=== PATIENT | female | born 1975 | race Caucasian/White ===

== ENCOUNTER 2017-10-20 19:23 | Emergency (ER) | payer BC ==
--- NOTE | 2017-10-20 20:02 | EDM.PDOC ---
ED HPI GENERAL MEDICAL PROBLEM - General Chief Complaint: Cardiovascular Problem Stated Complaint: BLOOD PRESSURE Time Seen by Provider: 10/20/17 19:37 Source of Information: Reports: Patient History Limitations: Reports: No Limitations - History of Present Illness INITIAL COMMENTS - FREE TEXT/NARRATIVE: Presents reporting she is out of her blood pressure pills. She states that the clinic was not able to get her in until November 12 and the other clinic that she tried in [place] would not take her insurance because it was out of network. Her blood pressure has been elevated at home and she has had some headaches and ringing in the ears because of that. He has been on carvedilol 12.5 mg and hydrochlorothiazide 12.5 mg daily. No chest pain, shortness of breath or swelling in the ankles. HEAD Pain Score (Numeric/FACES): 7 - Related Data Allergies Allergy/AdvReac Type Severity Reaction Status Date / Time No Known Allergies Allergy Verified 10/20/17 19:29 Home Meds: Home Meds Carvedilol 1 tab PO BEDTIME 10/20/17 [History] Carvedilol 12.5 mg PO DAILY #30 tablet 10/20/17 [Rx] Hydrochlorothiazide 1 tab PO DAILY 10/20/17 [History] Hydrochlorothiazide 12.5 mg PO DAILY #30 cap 10/20/17 [Rx] ED ROS GENERAL - Review of Systems Review Of Systems: ROS reveals no pertinent complaints other than HPI. ED EXAM, GENERAL - Physical Exam Exam: See Below Exam Limited By: No Limitations General Appearance: Alert, No Apparent Distress Ears: Normal External Exam Nose: Normal Inspection Throat/Mouth: Normal Inspection Head: Atraumatic, Normocephalic Neck: Normal Inspection Respiratory/Chest: No Respiratory Distress, Lungs Clear, Normal Breath Sounds Cardiovascular: Normal Peripheral Pulses, Regular Rate, Rhythm, No Edema, No Murmur Peripheral Pulses: 3+: Radial (L), Radial (R), Posterior Tibial (L), Posterior Tibial (R) GI/Abdominal: Soft Neurological: Alert, Oriented, CN II-XII Intact, Normal Cognition, Normal Gait, No Motor/Sensory Deficits Psychiatric: Normal Affect, Normal Mood Skin Exam: Warm, Dry, Intact, Normal Color, No Rash Lymphatic: No Adenopathy Course - Vital Signs Last Recorded V/S: Last Vital Signs Temp 36.3 C 06/05/18 19:23 Pulse 79 10/20/17 19:23 Resp 18 10/20/17 19:23 BP 136/83 10/20/17 19:53 Pulse Ox 95 10/20/17 19:23 Departure - Departure Time of Disposition: 20:02 Disposition: Home, Self-Care 01 Condition: Good Clinical Impression: Hypertension Qualifiers: Hypertension type: essential hypertension Qualified Code(s): I10 - Essential ( primary) hypertension Referrals: PCP,None [Primary Care Provider] - Additional Instructions: 1. Follow up with primary care at [facility] as previously scheduled. 2. Take your prescribed medications.
== END 2017-10-20 20:00 | disposition home or self-care (01) ==
LOC: MW.ED 19:23
DX: I10 Essential (primary) hypertension (principal); Z79.899 Other long term (current) drug therapy
CPT/HCPCS: 99282

== ENCOUNTER 2018-05-29 20:45 | Emergency (ER) | payer BC ==
--- NOTE | 2018-05-29 21:21 | EDM.PDOC ---
ED HPI GENERAL MEDICAL PROBLEM - General Chief Complaint: General Stated Complaint: PT TAMPON INSERTED INCORRECTLY Time Seen by Provider: 05/29/18 21:19 Source of Information: Reports: Patient History Limitations: Reports: No Limitations - History of Present Illness INITIAL COMMENTS - FREE TEXT/NARRATIVE: HISTORY AND PHYSICAL: History of present illness: Patient is a 42-year-old female who presents to the emergency room today with complaints of retained tampon. She states this afternoon she had inserted a tampon and proceeded to take a shower. She was intimate shortly after and had forgotten that she had a tampon in place. She went to the bathroom to remove the tampon and was unable to find the string. States the tampon has only been in the vagina for approx 4-5 hours. She denies any fever, chills, chest pain, shortness of breath or cough. Denies any abdominal pain, nausea, vomiting, diarrhea, constipation or dysuria. She does routinely see her primary care provider and states that she did have a routine pelvic/Pap smear done within the last 6-8 months which was normal. Review of systems: As per history of present illness and below otherwise all systems reviewed and negative. Past medical history: As per history of present illness and as reviewed below otherwise noncontributory. Surgical history: As per history of present illness and as reviewed below otherwise noncontributory. Social history: See social history for further information Family history: As per history of present illness and as reviewed below otherwise noncontributory. Physical exam: General: Well-developed and well-nourished 42-year-old female. Alert and oriented. Nontoxic appearing and in no acute distress. HEENT: Atraumatic, normocephalic, pupils equal and reactive bilaterally, negative for conjunctival pallor or scleral icterus, mucous membranes moist, throat clear, neck supple, nontender, trachea midline. No drooling or trismus noted. No meningeal signs Lungs: Clear to auscultation, breath sounds equal bilaterally, chest nontender. Heart: S1S2, regular rate and rhythm without overt murmur Abdomen: Soft, nondistended, nontender. Negative for masses or hepatosplenomegaly. Negative for costovertebral tenderness. Pelvis: Stable nontender. Genitourinary: This was done with consent culinary art teacher at the bedside. Normal- appearing external genitalia. There is a side-lying tampon in the vagina. Was able to remove easily without difficulty. Remainder of the pelvic exam is within normal limits. She tolerated well. Rectal: Deferred. Skin: Intact, warm, dry. No lesions or rashes noted. Extremities: Atraumatic, negative for cords or calf pain. Neurovascular unremarkable. Neuro: Awake, alert, oriented. Cranial nerves II through XII unremarkable. Cerebellum unremarkable. Motor and sensory unremarkable throughout. Exam nonfocal. Notes: Besides the pelvic exam and removal of the retained tampon, patient offers no other concerns or complaints. She declines the need for any further evaluation or diagnostics. Supportive care measures were reviewed and discussed. She voices understanding and is agreeable to plan of care. Denies any further questions or concerns at this time. Diagnostics: None Therapeutics: None Prescription: None Impression: Foreign body removal of the vagina Plan: 1. Please follow-up with your primary care provider and/or WIND PROJECT MANAGER as needed. 2. Return to the ED as needed and as discussed. Definitive disposition and diagnosis as appropriate pending reevaluation and review of above. pelvis Pain Score (Numeric/FACES): 5 - Related Data Allergies Allergy/AdvReac Type Severity Reaction Status Date / Time No Known Allergies Allergy Verified 05/29/18 20:52 Home Meds: Home Meds Carvedilol 12.5 mg PO DAILY #30 tablet 10/20/17 [Rx] hydroCHLOROthiazide [Hydrochlorothiazide] 12.5 mg PO DAILY #30 cap 10/20/17 [Rx] Montelukast [Singulair] 1 tab PO DAILY 05/29/18 [History] Pantoprazole [ProTONIX] 1 tab PO DAILY 05/29/18 [History] metFORMIN [Glucophage XR] 1 tab PO BID 05/29/18 [History] Past Medical History Cardiovascular History: Reports: Hypertension Respiratory History: Reports: Asthma WIND PROJECT MANAGER History: Reports: Endocrine/Metabolic History: Reports: Obesity/BMI 30+ - Past Surgical History GI Surgical History: Reports: Cholecystectomy Female Surgical History: Reports: Section Musculoskeletal Surgical History: Reports: Arthroscopic Knee Social & Family History - Family History Family Medical History: Noncontributory - Tobacco Use Smoking Status *Q: Never Smoker - Recreational Drug Use Recreational Drug Use: No ED ROS GENERAL - Review of Systems Review Of Systems: ROS reveals no pertinent complaints other than HPI. ED EXAM, GENERAL - Physical Exam Exam: See Below (See dictation) Course - Vital Signs Last Recorded V/S: Last Vital Signs Temp 98.1 F 05/29/18 21:00 Pulse 92 05/29/18 21:00 Resp 18 05/29/18 21:00 BP 143/94 H 05/29/18 21:00 Pulse Ox 98 05/29/18 21:00 Departure - Departure Time of Disposition: 21:20 Disposition: Home, Self-Care Clinical Impression: Retained tampon Qualifiers: Encounter type: initial encounter Qualified Code(s): T19.2XXA - Foreign body in vulva and vagina, initial encounter - Discharge Information Instructions: Vaginal Foreign Body, [id number] Referrals: PCP,None [Primary Care Provider] - Forms: ED Department Discharge Additional Instructions: The following information is given to patients seen in the emergency department who are being discharged to home. This information is to outline your options for follow-up care. We provide all patients seen in our emergency department with a follow-up referral. The need for follow-up, as well as the timing and circumstances, are variable depending upon the specifics of your emergency department visit. If you don't have a primary care physician on staff, we will provide you with a referral. We always advise you to contact your personal physician following an emergency department visit to inform them of the circumstance of the visit and for follow-up with them and/or the need for any referrals to a consulting specialist. The emergency department will also refer you to a specialist when appropriate. This referral assures that you have the opportunity for follow-up care with a specialist. All of these measure are taken in an effort to provide you with optimal care, which includes your follow-up. Under all circumstances we always encourage you to contact your private physician who remains a resource for coordinating your care. When calling for follow-up care, please make the office aware that this follow-up is from your recent emergency room visit. If for any reason you are refused follow-up, please contact the [facility] Emergency Department at and asked to speak to the emergency department charge nurse. [facility] [address] [place] [id number] [facility] [address] [place] [address] 1. Please follow-up with your primary care provider and/or WIND PROJECT MANAGER as needed. 2. Return to the ED as needed and as discussed.
== END 2018-05-29 21:25 | disposition home or self-care (01) ==
LOC: MW.ED 20:45
DX: T19.2XXA Foreign body in vulva and vagina, initial encounter (principal); I10 Essential (primary) hypertension; Z79.899 Other long term (current) drug therapy
CPT/HCPCS: 99283

== ENCOUNTER 2018-07-30 09:31 | Day surgery (SDC) | payer BC, OTHER ==
[~2018-07-30 09:31] MED LIST: Bupivacaine 0.25%/EPINEPHrine 1:200,000 10 ML SDV INJECT ONE; Lactated Ringers 1,000 ML IV SCH; ceFAZolin 2 GM in Premix Bag 1 BAG IV ONE
--- NOTE | 2018-07-30 10:07 | PCM.PREANE ---
Preanesthetic Assessment - Anesthesia/Transfusion/Family Hx Anesthesia History: Prior Anesthesia Without Reaction Family History of Anesthesia Reaction: No Transfusion History: No Prior Transfusion(s) - Review of Systems General: No Symptoms Pulmonary: No Symptoms Cardiovascular: No Symptoms Gastrointestinal: No Symptoms Neurological: No Symptoms Other: Reports: None - Physical Assessment NPO Status Date: 07/29/18 Height: 5 ft 2 in Weight: 108.862 kg ASA Class: 2 Mental Status: Alert & Oriented x3 Airway Class: Mallampati = 2 Dentition: Reports: Broken Tooth/Teeth ROM/Head Extension: Full Lungs: Clear to Auscultation, Normal Respiratory Effort Cardiovascular: Regular Rate, Regular Rhythm - Allergies Allergies/Adverse Reactions: Allergies Allergy/AdvReac Type Severity Reaction Status Date / Time No Known Allergies Allergy Verified 07/26/18 07:52 - Blood Blood Available: No - Anesthesia Plan Pre-Op Medication Ordered: None - Acknowledgements Anesthesia Type Planned: General Anesthesia Pt an Appropriate Candidate for the Planned Anesthesia: Yes Alternatives and Risks of Anesthesia Discussed w Pt/Guardian: Yes Pt/Guardian Understands and Agrees with Anesthesia Plan: Yes Additional Comments: PMH: MO, Asthma, HTN, metabolic syndrome-rx:metformin PLAN: GET PreAnesthesia Questionnaire HEENT History: Reports: Allergic Rhinitis, Hard of Hearing, Impaired Vision, Other (See Below) Other HEENT History: wears contacts, left hearing aid Cardiovascular History: Reports: Hypertension Respiratory History: Reports: Asthma Other Respiratory History: states has not used her inhaler for years Gastrointestinal History: Reports: GERD Genitourinary History: Reports: None RESOURCING CONSULTANT History: Reports: Musculoskeletal History: Reports: Neck Pain, Chronic Neurological History: Reports: None Psychiatric History: Reports: Anxiety, Depression Endocrine/Metabolic History: Reports: Obesity/BMI 30+ Other Endocrine/Metabolic History: metabolic syndrome Hematologic History: Reports: None Immunologic History: Reports: None Oncologic (Cancer) History: Reports: None Dermatologic History: Reports: None - Past Surgical History Head Surgeries/Procedures: Reports: None GI Surgical History: Reports: Cholecystectomy Female Surgical History: Reports: Section Neurological Surgical History: Reports: None Musculoskeletal Surgical History: Reports: Arthroscopic Knee, Carpal Tunnel Oncologic Surgical History: Reports: None Dermatological Surgical History: Reports: None - SUBSTANCE USE Smoking Status *Q: Never Smoker Recreational Drug Use History: No - HOME MEDS Home Medications: Home Meds hydroCHLOROthiazide [Hydrochlorothiazide] 12.5 mg PO DAILY #30 cap 10/20/17 [Rx] Montelukast [Singulair] 1 tab PO DAILY 05/29/18 [History] Pantoprazole [ProTONIX] 1 tab PO DAILY 05/29/18 [History] metFORMIN [Glucophage XR] 1 tab PO BID 05/29/18 [History] Cetirizine [ZyrTEC] 10 mg PO BEDTIME 07/26/18 [History] Levocetirizine Dihydrochloride [Xyzal] 5 mg PO DAILY 07/26/18 [History] Sertraline HCl 100 mg PO DAILY 07/26/18 [History] Carvedilol 12.5 mg PO BEDTIME 07/27/18 [History] - CURRENT (IN HOUSE) MEDS Current Meds: Current Medications Hydrocodone Bitart/Acetaminophen ([place] 325-5 Mg) 1 tab PO Q4H PRN PRN Reason: Pain Lactated Ringer's (Ringers, Lactated) 1,000 mls @ 125 mls/hr IV ASDIRECTED SAV Discontinued Medications Bupivacaine HCl/Epinephrine Bitart (Marcaine 0.25%/Epinephrine 1:200,000) 30 ml INJECT ONETIME ONE Stop: 07/30/18 08:01 Cefazolin Sodium/Dextrose 2 gm (/ Premix) 50 mls @ 100 mls/hr IV ONETIME ONE Stop: 07/30/18 08:29
[2018-07-30] MEDS ORDERED: diphenhydrAMINE 50 MG/ML SDV ONE (10:17)
[2018-07-30] MEDS ORDERED: Lidocaine 2% 5 ML SDV ONE (10:17)
[2018-07-30] MEDS ORDERED: Bupivacaine 25%/EPINEPHrine/PF 30 ML ONE (10:40)
[2018-07-30] MEDS ORDERED: fentaNYL 250 MCG/5 ML SDV ONE (10:48)
[2018-07-30] MEDS ORDERED: Propofol 200 MG/20 ML SDV ONE (10:48)
[2018-07-30] MEDS ORDERED: Rocuronium 10 MG/ML 10 ML Syringe ONE (10:48)
[2018-07-30] MEDS ORDERED: Midazolam 1 MG/ML 2 ML SDV ONE (10:48)
[2018-07-30] MEDS ORDERED: Ondansetron 4 MG/2 ML SDV ONE (10:48)
[2018-07-30] MEDS ORDERED: ceFAZolin/Dextrose,Iso-Osmotic 2 GM/50 ML Duplex Bag IV ONE (10:50)
[2018-07-30] MEDS ORDERED: HYDROmorphone 2 MG/ML Syringe ONE (11:44)
[2018-07-30] MEDS ORDERED: Scopolamine 1.5 MG Transdermal Patch ONE (11:44)
[2018-07-30] MEDS ORDERED: EPINEPHrine 1 MG/ML 30 ML MDV IVPUSH PRN (14:21)
[2018-07-30] MEDS ORDERED: 50% Dextrose in Water 50 ML Syringe IVPUSH PRN (14:21)
[2018-07-30] MEDS ORDERED: Naloxone 0.4 MG/ML Syringe IVPUSH PRN (14:21)
[2018-07-30] MEDS ORDERED: fentaNYL 100 MCG/2 ML SDV IVPUSH PRN (14:21)
[2018-07-30] MEDS ORDERED: Albuterol 0.083% 2.5 MG/3 ML Neb Soln NEB PRN (14:21)
[2018-07-30] MEDS ORDERED: Atropine 0.4 MG/ML SDV IVPUSH PRN (14:21)
[2018-07-30] MEDS ORDERED: Atropine 0.4 MG/ML 20 ML MDV IVPUSH PRN (14:21)
--- NOTE | 2018-07-30 15:45 | PCM.POSTAN ---
POST ANESTHESIA ASSESSMENT - MENTAL STATUS Mental Status: Alert, Oriented - VITAL SIGNS Pulse Rate: 80 SaO2: 92 (2 LPM NC) Resp Rate: 14 - RESPIRATORY Respiratory Status: Respiratory Rate WNL, Airway Patent, O2 Saturation Stable - CARDIOVASCULAR CV Status: Pulse Rate WNL, Blood Pressure Stable - GASTROINTESTINAL GI Status: No Symptoms - POST OP HYDRATION Hydration Status: Adequate & Stable
--- NOTE | 2018-07-30 16:10 | PCM.OPNOTE ---
- General Post-Op/Procedure Note Date of Surgery/Procedure: 07/30/18 Operative Procedure(s): bilateral reduction mammoplasty Pre Op Diagnosis: bilateral macromastia Post-Op Diagnosis: Same Anesthesia Technique: Local, MAC Primary Surgeon: Rosa Salazar Retail Performance Coach: Darcy Teixeira Role of Retail Performance Coach: retraction prepping draping and closure assistance Complications: None Condition: Good Free Text/Narrative:: Intake & Output 07/30/18 07/30/18 07/30/18 07:59 15:59 23:59 Intake Total 4000 Output Total 410 Balance 3590
[2018-07-30] MEDS ORDERED: Ondansetron 4 MG/2 ML SDV IVPUSH PRN (16:19)
[2018-07-30] MEDS ORDERED: Ondansetron 4 MG Tab.DIS PO PRN (16:19)
[2018-07-30] MEDS ORDERED: Promethazine 25 MG Tab PO PRN (19:43)
[2018-07-30] MEDS: Acetaminophen/HYDROcodone 325-5 MG Tab PO PRN (20:04)
[2018-07-30] MEDS ORDERED: Carvedilol 12.5 MG Tab PO SCH (21:00)
[2018-07-30] MEDS ORDERED: Cetirizine 10 MG Tab PO SCH (21:00)
[2018-07-30] MEDS: Montelukast 10 MG Tab PO SCH (21:16)
[2018-07-31] MEDS: Acetaminophen/HYDROcodone 325-5 MG Tab PO PRN ×2 (04:50→09:47)
[2018-07-31] MEDS ORDERED: Omeprazole 20 MG Cap.CR PO SCH (07:00)
--- NOTE | 2018-07-31 08:36 | PCM48HPAN ---
Post Anesthesia Note - EVALUATION WITHIN 48HRS OF ANESTHETIC Vital Signs in Normal Range: Yes Patient Participated in Evaluation: Yes Respiratory Function Stable: Yes Airway Patent: Yes Cardiovascular Function Stable: Yes Hydration Status Stable: Yes Pain Control Satisfactory: Yes Nausea and Vomiting Control Satisfactory: Yes Mental Status Recovered: Yes Pulse Rate: 88 Resp Rate: 18 Blood Pressure: 134/73 - COMMENTS/OBSERVATIONS Free Text/Narrative:: Pts nausea is improving and able to take PO fluids and solids. Pts pain remain tolerable. Pt ready for discharge.
[2018-07-31] MEDS ORDERED: Non-Formulary Medication 1 Each (Levocetirizine Dihydrochloride [Xyzal] 5 MG) PO SCH (09:00)
[2018-07-31] MEDS ORDERED: Hydrochlorothiazide 12.5 MG Cap PO SCH (09:00)
[2018-07-31] MEDS ORDERED: metFORMIN 500 MG Tab.ER PO SCH (09:00)
[2018-07-31] MEDS ORDERED: Sertraline 100 MG Tab PO SCH (09:00)
[2018-07-31] MEDS: Montelukast 10 MG Tab PO SCH (10:34)
--- NOTE | 2018-07-31 13:11 | OR ---
SURGEON: ADRIANNE MELCHOR MD DATE OF PROCEDURE: 07/30/2018 PREOPERATIVE DIAGNOSIS: Bilateral macromastia. POSTOPERATIVE DIAGNOSIS: Bilateral macromastia. PROCEDURE: Bilateral reduction mammoplasty. REVENUE TAX SPECIALIST: AUDREY Warner REASON FOR AND ROLE OF REVENUE TAX SPECIALIST: Retraction, prepping, draping, positioning and closure assistance. INDICATIONS: Ms. Huff is a 42-year-old female with macromastia and significant symptoms associated. Risks and benefits were discussed with her including, but not limited to, bleeding, infection, damage to underlying or overlying structures, possible need for future interventions, possible scarring. This will be done for medical necessity. PROCEDURE IN DETAIL: After informed consent was obtained and placed on the chart, the patient was brought to the operating theater and laid in supine position. After adequate general anesthesia was obtained, the area was prepped and draped, and time-out was completed to confirm side and site. Attention was then paid to time-out to confirm side and site and then the preoperative markings done in the preanesthesia area were confirmed and just slightly for new inferior pedicle. Once the inferior pedicle was designed, it was de-epithelialized using a breast tourniquet and a 15 blade taking care to spare the nipple. Once adequately de-epithelialized, attention was then paid to the superior skin flaps. The superior skin flaps were dissected 1.5 cm thick tapering to the chest wall medially, 1.5 cm thick tapering all the way to the chest wall laterally. They were connected in the middle and the intervening breast tissue between this and the inferior pedicle was removed. The symmetry procedure was completed on the opposite side and the skin was redraped bilaterally and stapled in position. The patient was then sat up into the supine position and the left breast was appreciated to be somewhat larger. Additional adjustments were made here and additional breast tissue was taken. The patient was then sat up again and symmetry was appreciated. Once back in supine position, the new position of the nipple-areolar complex had been marked while sitting up, and these were dissected and the nipple-areolar complex was brought through and stapled in place. Once this was completed, attention was then paid to closure. A 3-0 Monocryl Stratafix in a deep dermal fashion was used to close the dermis and a running subcuticular 4-0 Stratafix for the skin and was used to complete the closure. Once this was done, the wounds were dressed with Steri-Strips. The patient tolerated this well with some inverting of the left nipple, which was adjusted well to pop out. This is most likely positioning of the patient. Once adequately dressed with fluffs, Kerlix, and a compression bra, the patient was transferred to the PACU in stable condition. FOLLOW UP: She will be maintained with this overnight as she is quite sleepy and has had some low 90s oxygen saturations in PACU. LEON / JEAN /[id number] BENITO
== END 2018-07-31 11:20 | disposition home or self-care (01) ==
LOC: MW.SDS 09:31 → MW.MS 16:44 → MW.SDS 07-31 11:20
PROVIDERS: ATTEND Plastic Surgery
DX: N62 Hypertrophy of breast (principal); N60.12 Diffuse cystic mastopathy of left breast; N60.11 Diffuse cystic mastopathy of right breast; J45.909 Unspecified asthma, uncomplicated; I10 Essential (primary) hypertension; E66.9 Obesity, unspecified; Z68.41 Body mass index [BMI] 40.0-44.9, adult; H91.90 Unspecified hearing loss, unspecified ear; E78.5 Hyperlipidemia, unspecified; K21.9 Gastro-esophageal reflux disease without esophagitis; F41.9 Anxiety disorder, unspecified; F32.9 Major depressive disorder, single episode, unspecified; M19.90 Unspecified osteoarthritis, unspecified site; Z79.84 Long term (current) use of oral hypoglycemic drugs; Z79.899 Other long term (current) drug therapy
CPT/HCPCS: 19318; 36415; 84703; A9270; J0131; J0461; J0690; J1170; J1200; J2001; J2250; J2405; J2704; J3010; J7120

== ENCOUNTER 2018-08-21 13:32 | Observation (INO) | payer BC, OTHER ==
[2018-08-21] MEDS ORDERED: Sodium Chloride 0.9% 10 ML Syringe FLUSH PRN (13:59)
[2018-08-21] MEDS ORDERED: Sodium Chloride 0.9% 2.5 ML Syringe FLUSH PRN (13:59)
[2018-08-21] MEDS ORDERED: Sodium Chloride 0.9% 1,000 ML IV ONE (13:59)
[2018-08-21 15:19] LABS: CHLORIDE,CL 102 mmol/L (98-107); SODIUM,NA 139 mmol/L (136-145)
[2018-08-21] MEDS ORDERED: Ondansetron 4 MG Tab.DIS PO PRN (16:10)
[2018-08-21] MEDS ORDERED: Acetaminophen 325 MG Tab PO PRN (16:10)
--- NOTE | 2018-08-21 16:23 | PCM.HP ---
H&P History of Present Illness - General Date of Service: 08/21/18 Admit Problem/Dx: Admission Diagnosis/Problem Admission Diagnosis/Problem Cellulitis Source of Information: Patient History Limitations: Reports: No Limitations - History of Present Illness Initial Comments - Free Text/Narative: Patient noted increased redness of the right breast yesterday with some drainage. She states she woke up wet and this morning feeling febrile and chilled. She has recently had someone in her family with influenza type illness , but denies any of those symptoms. She feels very tired. Focal redness of the right breast at the T junction more than the left breast. No streaking or signs of deeper involvement. She tried to milk fluid for us today and there is nothing draining at this time. We will try to obtain a culture of the area but it may be limited given the lack of any purulence or drainage. We discussed that there are two options - one being IV antibiotics here and then discharge on oral or keeping for observation overnight. Given the rapidity of the onset and curious timing of 3 weeks out from surgery, this is quite atypical. I would recommend coming in overnight for IV antibiotics just to be safe. She understands and agrees. Onset of Symptoms: Reports: Sudden Duration of Symptoms: Reports: Day(s): (1) Location: Reports: Chest (right breast) Quality: Reports: Pressure, Throbbing Severity: Moderate Improves with: Reports: None Worsens with: Reports: None Context: Reports: Sick Contact. Denies: Trauma Associated Symptoms: Reports: Fever/Chills, Headaches, Malaise. Denies: Nausea/ Vomiting, Rash, Shortness of Breath Right Breast Pain Score (Numeric/FACES): 3 - Related Data Allergies/Adverse Reactions: Allergies Allergy/AdvReac Type Severity Reaction Status Date / Time No Known Allergies Allergy Verified 08/21/18 13:39 Home Medications: Home Meds hydroCHLOROthiazide [Hydrochlorothiazide] 12.5 mg PO DAILY #30 cap 10/20/17 [Rx] Montelukast [Singulair] 1 tab PO DAILY 05/29/18 [History] Pantoprazole [ProTONIX] 1 tab PO DAILY 05/29/18 [History] metFORMIN [Glucophage XR] 1 tab PO BID 05/29/18 [History] Cetirizine [ZyrTEC] 10 mg PO BEDTIME 07/26/18 [History] Levocetirizine Dihydrochloride [Xyzal] 5 mg PO DAILY 07/26/18 [History] Sertraline HCl 100 mg PO DAILY 07/26/18 [History] Carvedilol 12.5 mg PO BEDTIME 07/27/18 [History] Acetaminophen/HYDROcodone [Clifton 325-5 MG] 1 tab PO Q4H PRN #30 tablet 07/30/18 [Rx] Past Medical History HEENT History: Reports: Allergic Rhinitis, Hard of Hearing, Impaired Vision, Other (See Below) Other HEENT History: wears contacts, left hearing aid Cardiovascular History: Reports: Hypertension Respiratory History: Reports: Asthma Other Respiratory History: states has not used her inhaler for years Gastrointestinal History: Reports: GERD Genitourinary History: Reports: None 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: Musculoskeletal History: Reports: Neck Pain, Chronic Neurological History: Reports: None Psychiatric History: Reports: Anxiety, Depression Endocrine/Metabolic History: Reports: Obesity/BMI 30+ Other Endocrine/Metabolic History: metabolic syndrome Hematologic History: Reports: None Immunologic History: Reports: None Oncologic (Cancer) History: Reports: None Dermatologic History: Reports: None - Infectious Disease History Infectious Disease History: Reports: None - Past Surgical History Head Surgeries/Procedures: Reports: None GI Surgical History: Reports: Cholecystectomy Female Surgical History: Reports: Section Neurological Surgical History: Reports: None Musculoskeletal Surgical History: Reports: Arthroscopic Knee, Carpal Tunnel Oncologic Surgical History: Reports: None Dermatological Surgical History: Reports: None Social & Family History - Family History Family Medical History: Noncontributory - Tobacco Use Smoking Status *Q: Never Smoker - Caffeine Use Caffeine Use: Reports: Coffee - Recreational Drug Use Recreational Drug Use: No H&P Review of Systems - Review of Systems: Review Of Systems: See Below General: Reports: Fever, Chills, Malaise, Fatigue, Night Sweats. Denies: Weakness Pulmonary: Reports: No Symptoms Cardiovascular: Reports: No Symptoms Musculoskeletal: Reports: No Symptoms Skin: Reports: Erythema Psychiatric: Reports: No Symptoms Neurological: Reports: No Symptoms Exam - Exam Exam: See Below - Vital Signs Vital Signs: Last Vital Signs Temp 97.1 F 08/21/18 13:39 Pulse 92 08/21/18 13:39 Resp 16 08/21/18 13:39 BP 136/78 08/21/18 13:39 Pulse Ox 97 08/21/18 13:39 Weight: 230 lb - Exam General: Alert, Oriented, Cooperative HEENT: EOMI Lungs: Normal Respiratory Effort Cardiovascular: Regular Rate Extremities: Normal Range of Motion Skin: Warm, Dry, Wound (left lateral breast has the small opening we noted about 2cm and it is healing well. No signs of infection here. Left breast looks great. Right breast with redness and swelling at the central t junction area. Moderate redness - no drainage at this time. No open wounds - small t junction area with 0.5cm opening. ) Neuro Extensive - Mental Status: Alert, Oriented x3 Psychiatric: Alert, Normal Affect, Normal Mood - Patient Data Lab Results Last 24 hrs: Laboratory Results - last 24 hr 08/21/18 08/21/18 08/21/18 Range/Units 14:18 14:18 14:32 WBC 16.29 H (4.0-11.0) K/uL RBC 4.30 (4.30-5.90) M/uL Hgb 12.4 (12.0-16.0) g/dL Hct 37.6 (36.0-46.0) % MCV 87.4 (80.0-98.0) fL MCH 28.8 (27.0-32.0) pg MCHC 33.0 (31.0-37.0) g/dL RDW Std Deviation 42.5 (28.0-62.0) fl RDW Coeff of Aayush 13 (11.0-15.0) % Plt Count 262 (150-400) K/uL MPV 9.40 (7.40-12.00) fL Neut % (Auto) 62.1 (48.0-80.0) % Lymph % (Auto) 21.1 (16.0-40.0) % [place] % (Auto) 6.7 (0.0-15.0) % Eos % (Auto) 9.7 H (0.0-7.0) % Baso % (Auto) 0.4 (0.0-1.5) % Neut # (Auto) 10.1 H (1.4-5.7) K/uL Lymph # (Auto) 3.4 H (0.6-2.4) K/uL [place] # (Auto) 1.1 H (0.0-0.8) K/uL Eos # (Auto) 1.6 H (0.0-0.7) K/uL Baso # (Auto) 0.1 (0.0-0.1) K/uL Nucleated RBC % 0.0 /100WBC Nucleated RBCs # 0 K/uL Lactate 0.9 (0.20-2.00) mmol/L Sodium 139 (136-145) mmol/L Potassium 3.4 L (3.5-5.1) mmol/L Chloride 102 (98-107) mmol/L Carbon Dioxide 26.8 (21.0-32.0) mmol/L BUN 14 (7.0-18.0) mg/dL Creatinine 0.9 (0.6-1.0) mg/dL Est Cr Clr Drug Dosing 76.23 mL/min Estimated GFR (MDRD) > 60.0 ml/min Glucose 98 (74-106) mg/dL Calcium 9.1 (8.5-10.1) mg/dL Total Bilirubin 0.7 (0.2-1.0) mg/dL AST 16 (15-37) IU/L ALT 32 (14-63) IU/L Alkaline Phosphatase 54 (46-116) U/L Total Protein 7.7 (6.4-8.2) g/dL Albumin 3.6 (3.4-5.0) g/dL Globulin 4.1 H (2.6-4.0) g/dL Albumin/Globulin Ratio 0.9 (0.9-1.6) Result Diagrams: 08/21/18 14:18 08/21/18 14:18 *Q Meaningful Use (ADM) - VTE *Q VTE Anticoagulation Contraindications: Med/TX Not Indicated/Need - VTE Risk Assess *Q Each Risk Factor Represents 1 Point: Age 41 - 59 years Total Score 1 Point Risk Factors: 1 Each Risk Factor Represents 2 Points: Major surgery greater than 45 minutes Total Score 2 Point Risk Factors: 2 Each Risk Factor Represents 3 Points: None Total Score 3 Point Risk Factors: 0 Each Risk Factor Represents 5 Points: None Total Score 5 Point Risk Factors: 0 Venous Thromboembolism Risk Factor Score *Q: 3 - Problem List (1) Cellulitis SNOMED Code(s): 858764194 ICD Code: L03.90 - CELLULITIS, UNSPECIFIED Status: Acute Current Visit: Yes Qualifiers: Laterality: right Problem List Initiated/Reviewed/Updated: Yes Orders Last 24hrs: Active Orders 24 hr Category Date Time Status Patient Status [ADT] Stat ADT 08/21/18 16:10 Active Vital Signs [RC] PER UNIT ROUTINE Care 08/21/18 16:10 Active Regular Diet [DIET] Diet 08/22/18 Breakfast Active CULTURE BLOOD [BC] Stat Lab 08/21/18 14:32 Received CULTURE BLOOD [BC] Stat Lab 08/21/18 14:43 Received CULTURE WOUND [RM] Stat Lab 08/21/18 16:16 Ordered Acetaminophen [Tylenol] Med 08/21/18 16:10 Ordered 650 mg PO Q6H PRN Acetaminophen/HYDROcodone [Clifton 325-5 MG] Med 08/21/18 16:10 Ordered 1 tab PO Q4H PRN Ibuprofen [Motrin] Med 08/21/18 16:10 Ordered 600 mg PO Q6H PRN Lactated Ringers [Ringers, Lactated] 1,000 ml Med 08/21/18 16:15 Ordered IV ASDIRECTED Ondansetron [Zofran ODT] Med 08/21/18 16:10 Ordered 4 mg PO Q4H PRN Piperacillin/Tazobactam [Piperacil-Tazobact] 3.375 gm Med 08/21/18 16:15 Ordered Sodium Chloride 0.9% [Normal Saline] 50 ml IV Q8H Sodium Chloride 0.9% [Saline Flush] Med 08/21/18 13:59 Active 10 ml FLUSH ASDIRECTED PRN Sodium Chloride 0.9% [Saline Flush] Med 08/21/18 13:59 Active 2.5 ml FLUSH ASDIRECTED PRN Vancomycin [Vancocin] 1 gm Med 08/21/18 16:15 Ordered Sodium Chloride 0.9% [Normal Saline] 250 ml IV Q12H Blood Culture x2 Reflex Set [OM.PC] Stat Oth 08/21/18 13:58 Ordered Saline Lock Insert [OM.PC] Stat Oth 08/21/18 13:58 Ordered Medication Orders Acetaminophen (Tylenol) 650 mg PO Q6H PRN PRN Reason: Pain (mild 1-3) Hydrocodone Bitart/Acetaminophen (Clifton 325-5 Mg) 1 tab PO Q4H PRN PRN Reason: Pain (moderate 4-6) Lactated Ringer's (Ringers, Lactated) 1,000 mls @ 75 mls/hr IV ASDIRECTED SAV Piperacillin Sod/Tazobactam (Sod 3.375 gm/ Sodium Chloride) 50 mls @ 100 mls/ hr IV Q8H SAV Vancomycin HCl 1 gm/ Sodium (Chloride) 250 mls @ 166 mls/hr IV Q12H SAV Ibuprofen (Motrin) 600 mg PO Q6H PRN PRN Reason: Pain Ondansetron HCl (Zofran Odt) 4 mg PO Q4H PRN PRN Reason: Nausea/Vomiting Sodium Chloride (Saline Flush) 10 ml FLUSH ASDIRECTED PRN PRN Reason: Keep Vein Open Sodium Chloride (Saline Flush) 2.5 ml FLUSH ASDIRECTED PRN PRN Reason: Keep Vein Open Assessment/Plan Comment:: we will be very aggressive in treatment given the suspicious timing and we will start IV antibiotics. pain control observation and normal diet cultures obtained by physician in er at 430pm
[2018-08-21] MEDS: Lactated Ringers 1,000 ML IV SCH (17:59)
[2018-08-21] MEDS: Piperacillin/Tazobactam 3.375 GM in Sodium Chloride 0.9% 50 ML IV SCH (18:03)
[2018-08-21] MEDS: Acetaminophen/HYDROcodone 325-5 MG Tab PO PRN ×3 (19:24→20:52)
--- NOTE | 2018-08-21 22:18 | PCM.SN ---
- Free Text/Narrative Note: called for worsening cellulitis. Marginally worse but not a tremendous amount. Delay in getting antibiotics started, but now has had both. Very high anxiety and discussed anxiolytic but she is not interested and denies that this is contributing. She has been somewhat hyper-anxiety and a higher pain level than most other people who have this surgery. We discussed that this appears to be normal cellulitis and she can work on pain control. She has not tried the ibuprofen and we will recommend this. In addition we can try morphine if needed. Recheck in am.
[2018-08-21] MEDS ORDERED: Morphine 2 MG/ML Syringe IVPUSH SCH (22:30)
[2018-08-21] MEDS: Ibuprofen 600 MG Tab PO PRN (23:08)
[2018-08-21] MEDS: Montelukast 10 MG Tab PO SCH (23:09)
[2018-08-21] MEDS: Carvedilol 12.5 MG Tab PO SCH (23:11)
[2018-08-22] MEDS: diphenhydrAMINE 25 MG Cap PO PRN ×4 (00:13→18:10)
[2018-08-22] MEDS: Piperacillin/Tazobactam 3.375 GM in Sodium Chloride 0.9% 50 ML IV SCH ×3 (00:14→16:43)
[2018-08-22] MEDS: Lactated Ringers 1,000 ML IV SCH (10:00)
--- NOTE | 2018-08-22 11:24 | PCM.PN ---
- General Info Date of Service: 08/22/18 Admission Dx/Problem (Free Text): Admission Diagnosis/Problem Admission Diagnosis/Problem Cellulitis Functional Status: Reports: Pain Controlled, Tolerating Diet, Ambulating, Urinating. Denies: New Symptoms - Review of Systems General: Denies: Fever, Chills HEENT: Reports: No Symptoms Pulmonary: Reports: No Symptoms Musculoskeletal: Reports: No Symptoms Skin: Reports: Other (still redness but much improved. ) - Patient Data Vitals - Most Recent: Last Vital Signs Temp 98.7 F 08/22/18 07:53 Pulse 80 08/22/18 07:53 Resp 16 08/22/18 07:53 BP 112/40 L 08/22/18 07:53 Pulse Ox 96 08/22/18 07:53 Weight - Most Recent: 14 lb 14 oz I&O - Last 24 Hours: Intake & Output 08/21/18 08/22/18 08/22/18 23:59 07:59 15:59 Intake Total 1300 1400 50 Output Total 700 Balance 1300 700 50 Lab Results Last 24 Hours: Laboratory Results - last 24 hr 08/21/18 08/21/18 08/21/18 Range/Units 14:18 14:18 14:32 WBC 16.29 H (4.0-11.0) K/uL RBC 4.30 (4.30-5.90) M/uL Hgb 12.4 (12.0-16.0) g/dL Hct 37.6 (36.0-46.0) % MCV 87.4 (80.0-98.0) fL MCH 28.8 (27.0-32.0) pg MCHC 33.0 (31.0-37.0) g/dL RDW Std Deviation 42.5 (28.0-62.0) fl RDW Coeff of Aayush 13 (11.0-15.0) % Plt Count 262 (150-400) K/uL MPV 9.40 (7.40-12.00) fL Neut % (Auto) 62.1 (48.0-80.0) % Lymph % (Auto) 21.1 (16.0-40.0) % [place] % (Auto) 6.7 (0.0-15.0) % Eos % (Auto) 9.7 H (0.0-7.0) % Baso % (Auto) 0.4 (0.0-1.5) % Neut # (Auto) 10.1 H (1.4-5.7) K/uL Lymph # (Auto) 3.4 H (0.6-2.4) K/uL [place] # (Auto) 1.1 H (0.0-0.8) K/uL Eos # (Auto) 1.6 H (0.0-0.7) K/uL Baso # (Auto) 0.1 (0.0-0.1) K/uL Nucleated RBC % 0.0 /100WBC Nucleated RBCs # 0 K/uL Lactate 0.9 (0.20-2.00) mmol/L Sodium 139 (136-145) mmol/L Potassium 3.4 L (3.5-5.1) mmol/L Chloride 102 (98-107) mmol/L Carbon Dioxide 26.8 (21.0-32.0) mmol/L BUN 14 (7.0-18.0) mg/dL Creatinine 0.9 (0.6-1.0) mg/dL Est Cr Clr Drug Dosing 76.23 mL/min Estimated GFR (MDRD) > 60.0 ml/min Glucose 98 (74-106) mg/dL Calcium 9.1 (8.5-10.1) mg/dL Total Bilirubin 0.7 (0.2-1.0) mg/dL AST 16 (15-37) IU/L ALT 32 (14-63) IU/L Alkaline Phosphatase 54 (46-116) U/L Total Protein 7.7 (6.4-8.2) g/dL Albumin 3.6 (3.4-5.0) g/dL Globulin 4.1 H (2.6-4.0) g/dL Albumin/Globulin Ratio 0.9 (0.9-1.6) 08/22/18 Range/Units 08:38 WBC 12.44 H (4.0-11.0) K/uL RBC 3.81 L (4.30-5.90) M/uL Hgb 11.1 L (12.0-16.0) g/dL Hct 33.8 L (36.0-46.0) % MCV 88.7 (80.0-98.0) fL MCH 29.1 (27.0-32.0) pg MCHC 32.8 (31.0-37.0) g/dL RDW Std Deviation 42.9 (28.0-62.0) fl RDW Coeff of Aayush 13 (11.0-15.0) % Plt Count 232 (150-400) K/uL MPV 8.60 (7.40-12.00) fL Neut % (Auto) 59.2 (48.0-80.0) % Lymph % (Auto) 19.6 (16.0-40.0) % [place] % (Auto) 4.8 (0.0-15.0) % Eos % (Auto) 16.2 H (0.0-7.0) % Baso % (Auto) 0.2 (0.0-1.5) % Neut # (Auto) 7.4 H (1.4-5.7) K/uL Lymph # (Auto) 2.4 (0.6-2.4) K/uL [place] # (Auto) 0.6 (0.0-0.8) K/uL Eos # (Auto) 2.0 H (0.0-0.7) K/uL Baso # (Auto) 0.0 (0.0-0.1) K/uL Nucleated RBC % 0.0 /100WBC Nucleated RBCs # 0 K/uL Lactate (0.20-2.00) mmol/L Sodium (136-145) mmol/L Potassium (3.5-5.1) mmol/L Chloride (98-107) mmol/L Carbon Dioxide (21.0-32.0) mmol/L BUN (7.0-18.0) mg/dL Creatinine (0.6-1.0) mg/dL Est Cr Clr Drug Dosing mL/min Estimated GFR (MDRD) ml/min Glucose (74-106) mg/dL Calcium (8.5-10.1) mg/dL Total Bilirubin (0.2-1.0) mg/dL AST (15-37) IU/L ALT (14-63) IU/L Alkaline Phosphatase (46-116) U/L Total Protein (6.4-8.2) g/dL Albumin (3.4-5.0) g/dL Globulin (2.6-4.0) g/dL Albumin/Globulin Ratio (0.9-1.6) Simon Results Last 24 Hours: Microbiology 08/21/18 16:30 Wound Culture - Preliminary Breast, Right Med Orders - Current: Current Medications Acetaminophen (Tylenol) 650 mg PO Q6H PRN PRN Reason: Pain (mild 1-3) Last Admin: 08/21/18 18:17 Dose: 650 mg Hydrocodone Bitart/Acetaminophen (Pipestem 325-5 Mg) 1 tab PO Q4H PRN PRN Reason: Pain (moderate 4-6) Last Admin: 08/21/18 20:14 Dose: 1 tab Carvedilol (Coreg) 12.5 mg PO BEDTIME SAV Last Admin: 08/21/18 23:11 Dose: 12.5 mg Diphenhydramine HCl (Benadryl) 25 mg PO Q6H PRN PRN Reason: Itching Last Admin: 08/22/18 07:15 Dose: 25 mg Lactated Ringer's (Ringers, Lactated) 1,000 mls @ 75 mls/hr IV ASDIRECTED [facility] Last Admin: 08/22/18 10:00 Dose: 75 mls/hr Piperacillin Sod/Tazobactam (Sod 3.375 gm/ Sodium Chloride) 50 mls @ 100 mls/ hr IV Q8H [facility] Last Admin: 08/22/18 09:07 Dose: 100 mls/hr Vancomycin HCl 1 gm/ Sodium (Chloride) 250 mls @ 166 mls/hr IV BID@0600,1800 [facility] Last Admin: 08/22/18 05:49 Dose: 166 mls/hr Ibuprofen (Motrin) 600 mg PO Q6H PRN PRN Reason: Pain Last Admin: 08/21/18 23:08 Dose: 600 mg Montelukast Sodium (Singulair) 10 mg PO BEDTIME [facility] Last Admin: 08/21/18 23:09 Dose: 10 mg Morphine Sulfate (Morphine) 0.5 mg IVPUSH Q2H PRN PRN Reason: Pain Ondansetron HCl (Zofran Odt) 4 mg PO Q4H PRN PRN Reason: Nausea/Vomiting Sodium Chloride (Saline Flush) 10 ml FLUSH ASDIRECTED PRN PRN Reason: Keep Vein Open Sodium Chloride (Saline Flush) 2.5 ml FLUSH ASDIRECTED PRN PRN Reason: Keep Vein Open Discontinued Medications Sodium Chloride (Normal Saline) 1,000 mls @ 999 mls/hr IV .Bolus ONE Stop: 08/21/18 14:59 Last Admin: 08/21/18 14:20 Dose: 999 mls/hr Vancomycin HCl 1 gm/ Sodium (Chloride) 250 mls @ 166 mls/hr IV Q12H [facility] Last Admin: 08/21/18 21:15 Dose: Not Given Morphine Sulfate (Morphine) 0.5 mg IVPUSH Q2H [facility] Last Admin: 08/21/18 23:09 Dose: 0.5 mg - Exam General: Alert, Oriented, Cooperative HEENT: Pupils Equal Lungs: Normal Respiratory Effort Extremities: Normal Inspection, Normal Range of Motion Wound/Incisions: Erythema Improving (significantly better than even late last night. Softening of the skin. Discussed min-mod draiange to be serosanguinous and not frankly purulent and no signs of abscess formation. ) Neurological: No New Focal Deficit, Cranial Nerves Intact Psy/Mental Status: Alert, Normal Affect, Anxious - Problem List & Annotations (1) Cellulitis SNOMED Code(s): 113435669 Code(s): L03.90 - CELLULITIS, UNSPECIFIED Status: Acute Current Visit: Yes Qualifiers: Laterality: right - Problem List Review Problem List Initiated/Reviewed/Updated: Yes - My Orders Last 24 Hours: My Active Orders 08/21/18 16:10 Patient Status [ADT] Stat Vital Signs [RC] Q4H Acetaminophen [Tylenol] 650 mg PO Q6H PRN Acetaminophen/HYDROcodone [Pipestem 325-5 MG] 1 tab PO Q4H PRN Ibuprofen [Motrin] 600 mg PO Q6H PRN Ondansetron [Zofran ODT] 4 mg PO Q4H PRN 08/21/18 16:15 Lactated Ringers [Ringers, Lactated] 1,000 ml IV ASDIRECTED 08/21/18 16:30 CULTURE WOUND [RM] Stat 08/21/18 17:00 Piperacillin/Tazobactam [Piperacil-Tazobact] 3.375 gm Sodium Chloride 0.9% [ Normal Saline] 50 ml IV Q8H 08/21/18 18:45 Vancomycin [Vancocin] 1 gm Sodium Chloride 0.9% [Normal Saline] 250 ml IV BID@ 0600,1800 08/21/18 21:00 Carvedilol [Coreg] 12.5 mg PO BEDTIME Montelukast [Singulair] 10 mg PO BEDTIME 08/21/18 22:38 diphenhydrAMINE [Benadryl] 25 mg PO Q6H PRN 08/22/18 00:04 Morphine 0.5 mg IVPUSH Q2H PRN - Plan Plan:: continue IV antibiotics pending sensitivities. Likely discharge tomorrow on oral antibiotics. pain control observation and normal diet
[2018-08-22] MEDS: Pantoprazole 40 MG Tab.CR PO SCH (12:27)
[2018-08-22] MEDS: Morphine 2 MG/ML Syringe IVPUSH PRN ×2 (12:27→18:11)
[2018-08-22] MEDS: metFORMIN 500 MG Tab.ER PO SCH ×2 (12:27→20:55)
[2018-08-22] MEDS: Montelukast 10 MG Tab PO SCH ×2 (12:27→20:55)
[2018-08-22] MEDS: Hydrochlorothiazide 12.5 MG Cap PO SCH (12:27)
[2018-08-22] MEDS: Sertraline 100 MG Tab PO SCH (12:27)
[2018-08-22] MEDS: Acetaminophen/HYDROcodone 325-5 MG Tab PO PRN ×2 (14:57→20:52)
[2018-08-22] MEDS: Ibuprofen 600 MG Tab PO PRN (16:53)
[2018-08-22] MEDS: Carvedilol 12.5 MG Tab PO SCH (20:52)
[2018-08-22] MEDS: Cetirizine 10 MG Tab PO SCH (20:52)
[2018-08-23] MEDS: Piperacillin/Tazobactam 3.375 GM in Sodium Chloride 0.9% 50 ML IV SCH ×3 (00:45→16:51)
[2018-08-23] MEDS: Acetaminophen/HYDROcodone 325-5 MG Tab PO PRN ×4 (04:09→18:20)
[2018-08-23] MEDS: metFORMIN 500 MG Tab.ER PO SCH ×2 (09:30→21:26)
[2018-08-23] MEDS: Hydrochlorothiazide 12.5 MG Cap PO SCH (09:31)
[2018-08-23] MEDS: Pantoprazole 40 MG Tab.CR PO SCH (09:32)
[2018-08-23] MEDS: Sertraline 100 MG Tab PO SCH (09:33)
[2018-08-23] MEDS: Montelukast 10 MG Tab PO SCH ×2 (09:39→22:04)
[2018-08-23] MEDS ORDERED: Acetaminophen/HYDROcodone 325-5 MG Tab PO PRN (10:00)
--- NOTE | 2018-08-23 12:58 | PCM.SN ---
- Free Text/Narrative Note: recheck this am and though the right breast is significantly better there is some worsening of the left breast. This is curious given the significant improvements on the opposite side. This grew lao sensitive staph. My recommendation is opening of the focalized redness where the incision is to ensure there is no abscess - it is quite firm here and I anticipate there will be some fluid much like the right has had some drainage. We discussed imaging as well if needed, but I would proceed with the opening of the focal area prior to any additional scans. She would like to do this as well. We will return around 4pm and dose the morphine, norco and use some topical LET around that time as well. All questions answered.
[2018-08-23] MEDS ORDERED: Lidocaine/Prilocaine 2.5-2.5% Crm 5 GM Kit TOP ONE (15:30)
[2018-08-23] MEDS: Morphine 2 MG/ML Syringe IVPUSH PRN (16:47)
[2018-08-23] MEDS: diphenhydrAMINE 25 MG Cap PO PRN (16:57)
[2018-08-23] MEDS: Carvedilol 12.5 MG Tab PO SCH (22:04)
[2018-08-23] MEDS: Cetirizine 10 MG Tab PO SCH (22:04)
[2018-08-24] MEDS: Piperacillin/Tazobactam 3.375 GM in Sodium Chloride 0.9% 50 ML IV SCH ×3 (01:00→14:05)
[2018-08-24] MEDS: Acetaminophen/HYDROcodone 325-5 MG Tab PO PRN ×2 (01:09→08:18)
[2018-08-24] MEDS: Pantoprazole 40 MG Tab.CR PO SCH (08:19)
[2018-08-24] MEDS: Hydrochlorothiazide 12.5 MG Cap PO SCH (08:19)
[2018-08-24] MEDS: metFORMIN 500 MG Tab.ER PO SCH (08:19)
[2018-08-24] MEDS: Sertraline 100 MG Tab PO SCH (08:19)
[2018-08-24] MEDS: Montelukast 10 MG Tab PO SCH (08:20)
--- NOTE | 2018-08-24 12:26 | PCM.PN ---
- General Info Date of Service: 08/23/18 Admission Dx/Problem (Free Text): Admission Diagnosis/Problem Admission Diagnosis/Problem Cellulitis Functional Status: Reports: Pain Controlled, Tolerating Diet - Review of Systems General: Reports: No Symptoms HEENT: Reports: No Symptoms Musculoskeletal: Reports: No Symptoms Skin: Reports: Other (redness on the right much improved, left has increased. ) Neurological: Reports: No Symptoms Psychiatric: Reports: No Symptoms - Patient Data Vitals - Most Recent: Last Vital Signs Temp 97.3 F 08/24/18 11:54 Pulse 73 08/24/18 11:54 Resp 14 08/24/18 11:54 BP 103/58 L 08/24/18 11:54 Pulse Ox 96 08/24/18 11:54 Weight - Most Recent: 238 lb I&O - Last 24 Hours: Intake & Output 08/23/18 08/24/18 08/24/18 23:59 07:59 15:59 Intake Total 970 340 Balance 970 340 Simon Results Last 24 Hours: Microbiology 08/21/18 14:43 Aerobic Blood Culture - Preliminary Blood - Venous - Lab Draw NO GROWTH AFTER 2 DAYS Anaerobic Blood Culture - Preliminary NO GROWTH AFTER 2 DAYS 08/21/18 14:32 Aerobic Blood Culture - Preliminary Blood - Venous NO GROWTH AFTER 2 DAYS Anaerobic Blood Culture - Preliminary NO GROWTH AFTER 2 DAYS 08/21/18 16:30 Wound Culture - Final Breast, Right Staphylococcus Aureus Med Orders - Current: Current Medications Acetaminophen (Tylenol) 650 mg PO Q6H PRN PRN Reason: Pain (mild 1-3) Last Admin: 08/21/18 18:17 Dose: 650 mg Hydrocodone Bitart/Acetaminophen ([place] 325-5 Mg) 0 tab PO Q4H PRN PRN Reason: Pain (moderate 4-6) Last Admin: 08/24/18 08:18 Dose: 2 tab Carvedilol (Coreg) 12.5 mg PO BEDTIME SAV Last Admin: 08/23/18 22:04 Dose: 12.5 mg Cetirizine HCl (Zyrtec) 10 mg PO BEDTIME SAV Last Admin: 08/23/18 22:04 Dose: 10 mg Diphenhydramine HCl (Benadryl) 25 mg PO Q6H PRN PRN Reason: Itching Last Admin: 08/23/18 16:57 Dose: 25 mg Hydrochlorothiazide (Hydrochlorothiazide) 12.5 mg PO DAILY [facility] Last Admin: 08/24/18 08:19 Dose: 12.5 mg Lactated Ringer's (Ringers, Lactated) 1,000 mls @ 75 mls/hr IV ASDIRECTED [facility] Last Admin: 08/22/18 10:00 Dose: 75 mls/hr Vancomycin HCl 1 gm/ Sodium (Chloride) 250 mls @ 166 mls/hr IV BID@0600,1800 [facility] Last Admin: 08/24/18 06:45 Dose: 166 mls/hr Piperacillin Sod/Tazobactam (Sod 3.375 gm/ Sodium Chloride) 50 mls @ 100 mls/ hr IV Q6H [facility] Last Admin: 08/24/18 08:39 Dose: 100 mls/hr Ibuprofen (Motrin) 600 mg PO Q6H PRN PRN Reason: Pain Last Admin: 08/22/18 16:53 Dose: 600 mg Metformin HCl (Glucophage Xr) 500 mg PO BID [facility] Last Admin: 08/24/18 08:19 Dose: 500 mg Montelukast Sodium (Singulair) 10 mg PO BEDTIME [facility] Last Admin: 08/23/18 22:04 Dose: 10 mg Montelukast Sodium (Singulair) 10 mg PO DAILY [facility] Last Admin: 08/24/18 08:20 Dose: 10 mg Morphine Sulfate (Morphine) 0.5 mg IVPUSH Q2H PRN PRN Reason: Pain Last Admin: 08/23/18 16:47 Dose: 0.5 mg Ondansetron HCl (Zofran Odt) 4 mg PO Q4H PRN PRN Reason: Nausea/Vomiting Pantoprazole Sodium (Protonix) 40 mg PO DAILY [facility] Last Admin: 08/24/18 08:19 Dose: 40 mg Levocetirizine Dihydrochloride [ Xyzal] 5 Mg 1 each PO DAILY [facility] Last Admin: 08/24/18 08:25 Dose: Not Given Sertraline HCl (Zoloft) 100 mg PO DAILY [facility] Last Admin: 08/24/18 08:19 Dose: 100 mg Sodium Chloride (Saline Flush) 10 ml FLUSH ASDIRECTED PRN PRN Reason: Keep Vein Open Sodium Chloride (Saline Flush) 2.5 ml FLUSH ASDIRECTED PRN PRN Reason: Keep Vein Open Discontinued Medications Hydrocodone Bitart/Acetaminophen ([place] 325-5 Mg) 1 tab PO Q4H PRN PRN Reason: Pain (moderate 4-6) Last Admin: 08/23/18 04:09 Dose: 2 tab Hydrocodone Bitart/Acetaminophen ([place] 325-5 Mg) 2 tab PO Q4H PRN PRN Reason: Pain (moderate 4-6) Sodium Chloride (Normal Saline) 1,000 mls @ 999 mls/hr IV .Bolus ONE Stop: 08/21/18 14:59 Last Admin: 08/21/18 14:20 Dose: 999 mls/hr Piperacillin Sod/Tazobactam (Sod 3.375 gm/ Sodium Chloride) 50 mls @ 100 mls/ hr IV Q8H [facility] Last Admin: 08/24/18 01:00 Dose: 100 mls/hr Vancomycin HCl 1 gm/ Sodium (Chloride) 250 mls @ 166 mls/hr IV Q12H [facility] Last Admin: 08/21/18 21:15 Dose: Not Given Vancomycin HCl 1 gm/ Sodium (Chloride) 250 mls @ 166 mls/hr IV ONETIME ONE Stop: 08/22/18 19:30 Last Admin: 08/22/18 18:08 Dose: 166 mls/hr Lidocaine/Prilocaine (Emla Crm) 1 gm TOP ASDIRECTED ONE Stop: 08/23/18 15:31 Last Admin: 08/23/18 16:04 Dose: 1 applic Morphine Sulfate (Morphine) 0.5 mg IVPUSH Q2H [facility] Last Admin: 08/21/18 23:09 Dose: 0.5 mg - Exam General: Alert, Oriented, Cooperative HEENT: EOMI Lungs: Normal Respiratory Effort Skin: Warm, Dry Wound/Incisions: Erythema (on the right is improving on the left is worse and more focal to the NAC area. ) Neurological: No New Focal Deficit Psy/Mental Status: Alert, Normal Affect, Normal Mood - Problem List & Annotations (1) Cellulitis SNOMED Code(s): 351620283 Code(s): L03.90 - CELLULITIS, UNSPECIFIED Status: Acute Current Visit: Yes Qualifiers: Laterality: right - Problem List Review Problem List Initiated/Reviewed/Updated: Yes - My Orders Last 24 Hours: My Active Orders 08/23/18 16:50 CULTURE WOUND [RM] Routine 08/24/18 07:30 Piperacillin/Tazobactam [Piperacil-Tazobact] 3.375 gm Sodium Chloride 0.9% [ Normal Saline] 50 ml IV Q6H - Plan Plan:: Incision and drainage today 08/23 - significant purulence in the local area. Captured and sent for repeat culture to ensure same species given onset and worsening despite the resolution on the right breast. Abscess could do that but quite strange to arise while on antibiotics. Pain control Normal Diet
--- NOTE | 2018-08-24 12:29 | PCM.PN ---
- General Info Date of Service: 08/24/18 Admission Dx/Problem (Free Text): Admission Diagnosis/Problem Admission Diagnosis/Problem Cellulitis Functional Status: Reports: Pain Controlled, Tolerating Diet - Review of Systems General: Reports: No Symptoms HEENT: Reports: No Symptoms Skin: Reports: Other (redness much improved. ) - Patient Data Vitals - Most Recent: Last Vital Signs Temp 97.3 F 08/24/18 11:54 Pulse 73 08/24/18 11:54 Resp 14 08/24/18 11:54 BP 103/58 L 08/24/18 11:54 Pulse Ox 96 08/24/18 11:54 Weight - Most Recent: 238 lb I&O - Last 24 Hours: Intake & Output 08/23/18 08/24/18 08/24/18 23:59 07:59 15:59 Intake Total 970 340 Balance 970 340 Simon Results Last 24 Hours: Microbiology 08/21/18 14:43 Aerobic Blood Culture - Preliminary Blood - Venous - Lab Draw NO GROWTH AFTER 2 DAYS Anaerobic Blood Culture - Preliminary NO GROWTH AFTER 2 DAYS 08/21/18 14:32 Aerobic Blood Culture - Preliminary Blood - Venous NO GROWTH AFTER 2 DAYS Anaerobic Blood Culture - Preliminary NO GROWTH AFTER 2 DAYS 08/21/18 16:30 Wound Culture - Final Breast, Right Staphylococcus Aureus Med Orders - Current: Current Medications Acetaminophen (Tylenol) 650 mg PO Q6H PRN PRN Reason: Pain (mild 1-3) Last Admin: 08/21/18 18:17 Dose: 650 mg Hydrocodone Bitart/Acetaminophen ([place] 325-5 Mg) 0 tab PO Q4H PRN PRN Reason: Pain (moderate 4-6) Last Admin: 08/24/18 08:18 Dose: 2 tab Carvedilol (Coreg) 12.5 mg PO BEDTIME SAV Last Admin: 08/23/18 22:04 Dose: 12.5 mg Cetirizine HCl (Zyrtec) 10 mg PO BEDTIME SAV Last Admin: 08/23/18 22:04 Dose: 10 mg Diphenhydramine HCl (Benadryl) 25 mg PO Q6H PRN PRN Reason: Itching Last Admin: 08/23/18 16:57 Dose: 25 mg Hydrochlorothiazide (Hydrochlorothiazide) 12.5 mg PO DAILY SAV Last Admin: 08/24/18 08:19 Dose: 12.5 mg Lactated Ringer's (Ringers, Lactated) 1,000 mls @ 75 mls/hr IV ASDIRECTED [facility] Last Admin: 08/22/18 10:00 Dose: 75 mls/hr Vancomycin HCl 1 gm/ Sodium (Chloride) 250 mls @ 166 mls/hr IV BID@0600,1800 [facility] Last Admin: 08/24/18 06:45 Dose: 166 mls/hr Piperacillin Sod/Tazobactam (Sod 3.375 gm/ Sodium Chloride) 50 mls @ 100 mls/ hr IV Q6H [facility] Last Admin: 08/24/18 08:39 Dose: 100 mls/hr Ibuprofen (Motrin) 600 mg PO Q6H PRN PRN Reason: Pain Last Admin: 08/22/18 16:53 Dose: 600 mg Metformin HCl (Glucophage Xr) 500 mg PO BID [facility] Last Admin: 08/24/18 08:19 Dose: 500 mg Montelukast Sodium (Singulair) 10 mg PO BEDTIME [facility] Last Admin: 08/23/18 22:04 Dose: 10 mg Montelukast Sodium (Singulair) 10 mg PO DAILY [facility] Last Admin: 08/24/18 08:20 Dose: 10 mg Morphine Sulfate (Morphine) 0.5 mg IVPUSH Q2H PRN PRN Reason: Pain Last Admin: 08/23/18 16:47 Dose: 0.5 mg Ondansetron HCl (Zofran Odt) 4 mg PO Q4H PRN PRN Reason: Nausea/Vomiting Pantoprazole Sodium (Protonix) 40 mg PO DAILY [facility] Last Admin: 08/24/18 08:19 Dose: 40 mg Levocetirizine Dihydrochloride [ Xyzal] 5 Mg 1 each PO DAILY [facility] Last Admin: 08/24/18 08:25 Dose: Not Given Sertraline HCl (Zoloft) 100 mg PO DAILY [facility] Last Admin: 08/24/18 08:19 Dose: 100 mg Sodium Chloride (Saline Flush) 10 ml FLUSH ASDIRECTED PRN PRN Reason: Keep Vein Open Sodium Chloride (Saline Flush) 2.5 ml FLUSH ASDIRECTED PRN PRN Reason: Keep Vein Open Discontinued Medications Hydrocodone Bitart/Acetaminophen ([place] 325-5 Mg) 1 tab PO Q4H PRN PRN Reason: Pain (moderate 4-6) Last Admin: 08/23/18 04:09 Dose: 2 tab Hydrocodone Bitart/Acetaminophen ([place] 325-5 Mg) 2 tab PO Q4H PRN PRN Reason: Pain (moderate 4-6) Sodium Chloride (Normal Saline) 1,000 mls @ 999 mls/hr IV .Bolus ONE Stop: 08/21/18 14:59 Last Admin: 08/21/18 14:20 Dose: 999 mls/hr Piperacillin Sod/Tazobactam (Sod 3.375 gm/ Sodium Chloride) 50 mls @ 100 mls/ hr IV Q8H [facility] Last Admin: 08/24/18 01:00 Dose: 100 mls/hr Vancomycin HCl 1 gm/ Sodium (Chloride) 250 mls @ 166 mls/hr IV Q12H [facility] Last Admin: 08/21/18 21:15 Dose: Not Given Vancomycin HCl 1 gm/ Sodium (Chloride) 250 mls @ 166 mls/hr IV ONETIME ONE Stop: 08/22/18 19:30 Last Admin: 08/22/18 18:08 Dose: 166 mls/hr Lidocaine/Prilocaine (Emla Crm) 1 gm TOP ASDIRECTED ONE Stop: 08/23/18 15:31 Last Admin: 08/23/18 16:04 Dose: 1 applic Morphine Sulfate (Morphine) 0.5 mg IVPUSH Q2H [facility] Last Admin: 08/21/18 23:09 Dose: 0.5 mg - Exam General: Alert, Oriented, Cooperative HEENT: EOMI Lungs: Normal Respiratory Effort Wound/Incisions: Erythema Improving (on bilateral breasts. Excellent progress. ) Psy/Mental Status: Alert, Normal Affect, Normal Mood - Problem List & Annotations (1) Cellulitis SNOMED Code(s): 812555293 Code(s): L03.90 - CELLULITIS, UNSPECIFIED Status: Acute Current Visit: Yes Qualifiers: Laterality: right - Problem List Review Problem List Initiated/Reviewed/Updated: Yes - My Orders Last 24 Hours: My Active Orders 08/23/18 16:50 CULTURE WOUND [RM] Routine 08/24/18 07:30 Piperacillin/Tazobactam [Piperacil-Tazobact] 3.375 gm Sodium Chloride 0.9% [ Normal Saline] 50 ml IV Q6H - Plan Plan:: Incision and drainage yesterday 08/23 - pending culture and much improved. Very atypical presentation 3 weeks post op and to see improvement on the right with worsening and onset on the left. There was an abscess that has been drained and we do see improvement. Would like culture results before discharge to ensure same species. If different species would wait for sensitivities before discharge. Anticipate staph a. Pain control continues and doing much better. D/c morphine and use only orals. Continue ambulation and PAS boots. Needs to ambulate more and discussed blood clot risk and keeping boots on while doing range of motion with legs. Normal Diet
--- NOTE | 2018-08-24 12:45 | PCM.OPNOTE ---
- General Post-Op/Procedure Note Date of Surgery/Procedure: 08/23/18 Operative Procedure(s): incision and drainage of abscess left breast Pre Op Diagnosis: left breast abscess Post-Op Diagnosis: Same Anesthesia Technique: Local Primary Surgeon: Rosa Salazar Complications: None Condition: Stable Free Text/Narrative:: Intake & Output 08/23/18 08/24/18 08/24/18 23:59 07:59 15:59 Intake Total 970 340 Balance 970 340 I and D of left breast - previous incision opened and purulence noted. Sent for culture - about 2-3cc total.
--- NOTE | 2018-08-31 15:37 | OR ---
SURGEON: ADRIANNE MELCHOR MD DATE OF PROCEDURE: 08/23/2018 PREOPERATIVE DIAGNOSIS: Left breast abscess. POSTOPERATIVE DIAGNOSIS: Left breast abscess. PROCEDURE: Incision and drainage of left breast abscess. ANESTHESIA: Local. INDICATIONS: Ms. Huff is seen today and has been hospitalized on IV antibiotics for cellulitis. There was some increased localization around the left nipple- areolar complex and we discussed incision and drainage. All questions were answered and she would like to proceed. PROCEDURE IN DETAIL: After adequate local anesthesia with topical, a small incision was made at the nipple-areolar complex previous incision that was opened. A small amount of purulence was noted approximately 2 to 3 mL total. This was collected and sent for culture. It was irrigated and packed with some packing material. She tolerated this well and was dressed with gauze. All counts and needles were correct at the end of the case. FOLLOWUP INSTRUCTIONS: The patient will be continued in the hospital on IV antibiotics. HEGGTHE / MODL /[id number]
== END 2018-08-24 15:10 | disposition home or self-care (01) ==
LOC: MW.ED 13:32 → MW.MS 17:09
PROVIDERS: ADMIT Plastic Surgery; ATTEND Plastic Surgery
DX: N61.1 Abscess of the breast and nipple (principal); I10 Essential (primary) hypertension; K21.9 Gastro-esophageal reflux disease without esophagitis; F41.9 Anxiety disorder, unspecified; F32.9 Major depressive disorder, single episode, unspecified; Z79.84 Long term (current) use of oral hypoglycemic drugs; Z79.899 Other long term (current) drug therapy
CPT/HCPCS: 10060; 36415; 80053; 83605; 85025; 87040; 87070; 87077; 87186; 96361; 96365; 96366; 96367; 96375; 96376; 99284; A9270; G0378; J2270; J2543; J3370; J7040; J7050; J7120; 96360

== ENCOUNTER 2019-02-01 10:10 | Emergency (ER) | payer BC, OTHER ==
--- NOTE | 2019-02-01 10:23 | EDM.PDOC ---
ED HPI GENERAL MEDICAL PROBLEM - General Chief Complaint: Lower Extremity Injury/Pain Stated Complaint: LEFT LEG PAIN Time Seen by Provider: 02/01/19 10:16 Source of Information: Reports: Patient History Limitations: Reports: No Limitations - History of Present Illness INITIAL COMMENTS - FREE TEXT/NARRATIVE: HISTORY AND PHYSICAL: History of present illness: Patient is a 43-year-old female who presents to the emergency room with complaints of left lower extremity pain x 2 weeks. She feels that the pain originates at the left knee and proximal posterior calf. She has the sensation that there is "a lump" to the left posterior calf which she states fluctuates in size. Currently does not have any pain in the posterior calf and cannot palpate/locate the "lump". Pain radiates up her quadricep and hamstring into the left hip and also down her calf muscle into her foot. She denies any injury , trauma or falls. She states it is painful to weight-bear and feels that she is having to "limp around". Patient denies any fever, chills, headache, change in vision, syncope or near syncope. Denies any chest pain, back pain, shortness of breath or cough. Denies any abdominal pain, nausea, vomiting, diarrhea, constipation or dysuria. Has not noted any blood in urine or stool. Patient has been eating and drinking appropriately. Review of systems: As per history of present illness and below otherwise all systems reviewed and negative. Past medical history: As per history of present illness and as reviewed below otherwise noncontributory. Surgical history: As per history of present illness and as reviewed below otherwise noncontributory. Social history: See social history for further information Family history: As per history of present illness and as reviewed below otherwise noncontributory. Physical exam: General: Well-developed and well-nourished 43-year-old female. Alert and oriented. Nontoxic appearing and in no acute distress. HEENT: Atraumatic, normocephalic, pupils equal and reactive bilaterally, negative for conjunctival pallor or scleral icterus, mucous membranes moist, TMs normal bilaterally, throat clear, neck supple, nontender, trachea midline. No drooling or trismus noted. No meningeal signs. No hot potato voice noted. Lungs: Clear to auscultation, breath sounds equal bilaterally, chest nontender. Heart: S1S2, regular rate and rhythm without overt murmur Abdomen: Soft, nondistended, nontender. Negative for masses or hepatosplenomegaly. Negative for costovertebral tenderness. Pelvis: Stable nontender. Skin: Intact, warm, dry. No lesions or rashes noted. Extremities: Atraumatic, moves all extremities per self without difficulty or deficits, negative for cords or calf pain. Neurovascular unremarkable. Neuro: Awake, alert, oriented. Cranial nerves II through XII unremarkable. Cerebellum unremarkable. Motor and sensory unremarkable throughout. Exam nonfocal. Notes: X-ray of the knee and hip are negative. Lab work is unremarkable. The ultrasound shows no evidence of DVT. All diagnostics were shared with the patient. We discussed the need for appropriate follow-up for further evaluation and management of this complaint. Supportive care measures were reviewed and discussed. Voices understanding and is agreeable to plan of care. Denies any further questions or concerns at this time. Diagnostics: CBC, CMP, INR, CRP, ESR, knee x-ray, hip/pelvis x-ray and venous ultrasound Therapeutics: [place], Zofran, knee brace, crutches Prescription: [place] (#15) Impression: Left lower extremity pain Plan: 1. Rest, ice, elevate the affected extremity. Please wear the splint as directed. 2. Tylenol and/or Ibuprofen as needed for pain management. 3. Follow up with the Orthopedic provider as we discussed. Return to the ED as needed and as discussed. Definitive disposition and diagnosis as appropriate pending reevaluation and review of above. left lower leg Pain Score (Numeric/FACES): 9 - Related Data Allergies Allergy/AdvReac Type Severity Reaction Status Date / Time No Known Allergies Allergy Verified 02/01/19 10:22 Home Meds: Home Meds hydroCHLOROthiazide [Hydrochlorothiazide] 12.5 mg PO DAILY #30 cap 10/20/17 [Rx] Montelukast [Singulair] 1 tab PO DAILY 05/29/18 [History] Pantoprazole [ProTONIX] 1 tab PO DAILY 05/29/18 [History] metFORMIN [Glucophage XR] 1 tab PO BID 05/29/18 [History] Cetirizine [ZyrTEC] 10 mg PO BEDTIME 07/26/18 [History] Levocetirizine Dihydrochloride [Xyzal] 5 mg PO DAILY 07/26/18 [History] Sertraline HCl 100 mg PO DAILY 07/26/18 [History] Carvedilol 12.5 mg PO BEDTIME 07/27/18 [History] Hydrocodone/Acetaminophen [Hydrocodon-Acetaminophen 5-325] 1 each PO Q4H PRN # 30 tablet 08/24/18 [Rx] Ibuprofen [Motrin] 600 mg PO Q6H PRN tablet 08/24/18 [Rx] Montelukast [Singulair] 10 mg PO BEDTIME tablet 08/24/18 [Rx] diphenhydrAMINE [Benadryl] 25 mg PO Q6H PRN cap 08/24/18 [Rx] Past Medical History HEENT History: Reports: Allergic Rhinitis, Hard of Hearing, Impaired Vision, Other (See Below) Other HEENT History: wears contacts, left hearing aid Cardiovascular History: Reports: Hypertension Respiratory History: Reports: Asthma Other Respiratory History: Uses Inhaler as needed. 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: Musculoskeletal History: Reports: Neck Pain, Chronic Neurological History: Reports: None Psychiatric History: Reports: Anxiety Endocrine/Metabolic History: Reports: Obesity/BMI 30+ Other Endocrine/Metabolic History: metabolic syndrome Hematologic History: Reports: None Immunologic History: Reports: None Oncologic (Cancer) History: Reports: None Dermatologic History: Reports: Cellulitis - Infectious Disease History Infectious Disease History: Reports: None - Past Surgical History Head Surgeries/Procedures: Reports: None GI Surgical History: Reports: Cholecystectomy Female Surgical History: Reports: Section Neurological Surgical History: Reports: None Musculoskeletal Surgical History: Reports: Arthroscopic Knee, Carpal Tunnel Oncologic Surgical History: Reports: None Dermatological Surgical History: Reports: None Social & Family History - Family History Family Medical History: Noncontributory - Caffeine Use Caffeine Use: Reports: None Review of Systems - Review of Systems Review Of Systems: ROS reveals no pertinent complaints other than HPI. ED EXAM, GENERAL - Physical Exam Exam: See Below (See dictation) Course - Vital Signs Last Recorded V/S: Last Vital Signs Temp 96.8 F 02/01/19 10:23 Pulse 85 02/01/19 12:01 Resp 14 02/01/19 12:01 BP 133/79 02/01/19 12:01 Pulse Ox 97 02/01/19 12:01 - Orders/Labs/Meds Orders: Active Orders 24 hr Category Date Time Status DME for Discharge [COMM] Stat Oth 02/01/19 11:50 Ordered Labs: Laboratory Tests 02/01/19 02/01/19 02/01/19 Range/Units 10:38 10:38 10:38 WBC 7.78 (4.0-11.0) K/uL RBC 4.72 (4.30-5.90) M/uL Hgb 13.3 (12.0-16.0) g/dL Hct 40.8 (36.0-46.0) % MCV 86.4 (80.0-98.0) fL MCH 28.2 (27.0-32.0) pg MCHC 32.6 (31.0-37.0) g/dL RDW Std Deviation 46.8 (28.0-62.0) fl RDW Coeff of Aayush 15 (11.0-15.0) % Plt Count 295 (150-400) K/uL MPV 9.10 (7.40-12.00) fL Neut % (Auto) 56.9 (48.0-80.0) % Lymph % (Auto) 36.4 (16.0-40.0) % [place] % (Auto) 4.0 (0.0-15.0) % Eos % (Auto) 2.3 (0.0-7.0) % Baso % (Auto) 0.4 (0.0-1.5) % Neut # (Auto) 4.4 (1.4-5.7) K/uL Lymph # (Auto) 2.8 H (0.6-2.4) K/uL [place] # (Auto) 0.3 (0.0-0.8) K/uL Eos # (Auto) 0.2 (0.0-0.7) K/uL Baso # (Auto) 0.0 (0.0-0.1) K/uL Nucleated RBC % 0.0 /100WBC Nucleated RBCs # 0 K/uL ESR (0-19) mm/hr INR 1.02 Sodium 137 (136-145) mmol/L Potassium 3.7 (3.5-5.1) mmol/L Chloride 102 (98-107) mmol/L Carbon Dioxide 24.1 (21.0-32.0) mmol/L BUN 15 (7.0-18.0) mg/dL Creatinine 0.8 (0.6-1.0) mg/dL Est Cr Clr Drug Dosing 71.71 mL/min Estimated GFR (MDRD) > 60.0 ml/min Glucose 152 H (74-106) mg/dL Calcium 9.6 (8.5-10.1) mg/dL Total Bilirubin 0.4 (0.2-1.0) mg/dL AST 19 (15-37) IU/L ALT 30 (14-63) IU/L Alkaline Phosphatase 52 (46-116) U/L C-Reactive Protein <0.20 (0.00-0.90) mg/dL Total Protein 7.3 (6.4-8.2) g/dL Albumin 3.9 (3.4-5.0) g/dL Globulin 3.4 (2.6-4.0) g/dL Albumin/Globulin Ratio 1.1 (0.9-1.6) 02/01/19 Range/Units 10:38 WBC (4.0-11.0) K/uL RBC (4.30-5.90) M/uL Hgb (12.0-16.0) g/dL Hct (36.0-46.0) % MCV (80.0-98.0) fL MCH (27.0-32.0) pg MCHC (31.0-37.0) g/dL RDW Std Deviation (28.0-62.0) fl RDW Coeff of Aayush (11.0-15.0) % Plt Count (150-400) K/uL MPV (7.40-12.00) fL Neut % (Auto) (48.0-80.0) % Lymph % (Auto) (16.0-40.0) % [place] % (Auto) (0.0-15.0) % Eos % (Auto) (0.0-7.0) % Baso % (Auto) (0.0-1.5) % Neut # (Auto) (1.4-5.7) K/uL Lymph # (Auto) (0.6-2.4) K/uL [place] # (Auto) (0.0-0.8) K/uL Eos # (Auto) (0.0-0.7) K/uL Baso # (Auto) (0.0-0.1) K/uL Nucleated RBC % /100WBC Nucleated RBCs # K/uL ESR 9 (0-19) mm/hr INR Sodium (136-145) mmol/L Potassium (3.5-5.1) mmol/L Chloride (98-107) mmol/L Carbon Dioxide (21.0-32.0) mmol/L BUN (7.0-18.0) mg/dL Creatinine (0.6-1.0) mg/dL Est Cr Clr Drug Dosing mL/min Estimated GFR (MDRD) ml/min Glucose (74-106) mg/dL Calcium (8.5-10.1) mg/dL Total Bilirubin (0.2-1.0) mg/dL AST (15-37) IU/L ALT (14-63) IU/L Alkaline Phosphatase (46-116) U/L C-Reactive Protein (0.00-0.90) mg/dL Total Protein (6.4-8.2) g/dL Albumin (3.4-5.0) g/dL Globulin (2.6-4.0) g/dL Albumin/Globulin Ratio (0.9-1.6) Meds: Medications Discontinued Medications Generic Name Dose Route Start Last Admin Trade Name Freq PRN Reason Stop Dose Admin Hydrocodone Bitart/Acetaminophen 1 tab 02/01/19 10:28 02/01/19 10:39 [place] 325-5 Mg PO 02/01/19 10:29 1 tab ONETIME ONE Administration Ondansetron HCl 4 mg 02/01/19 10:28 02/01/19 10:41 Zofran Odt PO 02/01/19 10:29 4 mg ONETIME ONE Administration Departure - Departure Time of Disposition: 12:14 Disposition: Home, Self-Care 01 Clinical Impression: Left leg pain - Discharge Information Referrals: PCP,Unknown [Primary Care Provider] - Forms: ED Department Discharge Additional Instructions: The following information is given to patients seen in the emergency department who are being discharged to home. This information is to outline your options for follow-up care. We provide all patients seen in our emergency department with a follow-up referral. The need for follow-up, as well as the timing and circumstances, are variable depending upon the specifics of your emergency department visit. If you don't have a primary care physician on staff, we will provide you with a referral. We always advise you to contact your personal physician following an emergency department visit to inform them of the circumstance of the visit and for follow-up with them and/or the need for any referrals to a consulting specialist. The emergency department will also refer you to a specialist when appropriate. This referral assures that you have the opportunity for follow-up care with a specialist. All of these measure are taken in an effort to provide you with optimal care, which includes your follow-up. Under all circumstances we always encourage you to contact your private physician who remains a resource for coordinating your care. When calling for follow-up care, please make the office aware that this follow-up is from your recent emergency room visit. If for any reason you are refused follow-up, please contact the [facility] at and asked to speak to the emergency department charge nurse. [facility] [address] [place] [id number] [place] [address] 1. Rest, ice, elevate the affected extremity. Please wear the splint and use the crutches as directed. 2. Tylenol and/or Ibuprofen as needed for pain management. [place] for moderate to severe pain. Do not take this medication while driving. 3. Follow up with the Orthopedic provider as we discussed. Return to the ED as needed and as discussed. - My Orders Last 24 Hours: My Active Orders 02/01/19 11:50 DME for Discharge [COMM] Stat - Assessment/Plan Last 24 Hours: My Active Orders 02/01/19 11:50 DME for Discharge [COMM] Stat
[2019-02-01] MEDS ORDERED: Ondansetron 4 MG Tab.DIS PO ONE (10:28)
[2019-02-01] MEDS ORDERED: Acetaminophen/HYDROcodone 325-5 MG Tab PO ONE (10:28)
[2019-02-01 11:16] LABS: BLOOD UREA NITROGEN,BUN 15 mg/dL (7.0-18.0); CARBON DIOXIDE,CO2 24.1 mmol/L (21.0-32.0); CHLORIDE,CL 102 mmol/L (98-107); GLUCOSE RANDOM 152 mg/dL (74-106); POTASSIUM,K 3.7 mmol/L (3.5-5.1); SODIUM,NA 137 mmol/L (136-145)
--- NOTE | 2019-02-01 11:49 | CR ---
INDICATION: Pain left knee. COMPARISON: None. TECHNIQUE: Three view study left knee. FINDINGS: No evidence of fracture or dislocation. No bone or soft tissue abnormalities. No evidence of suprapatellar synovial effusion. IMPRESSION: Negative radiographic examination of the left knee. Dictated by Marco Antonio Miranda MD @ Feb 01 2019 11:46AM Signed by Dr. Marco Antonio Miranda @ Feb 01 2019 11:48AM
--- NOTE | 2019-02-01 11:51 | CR ---
INDICATION: Pain left hip. TECHNIQUE: Three-view study pelvis and left hip. FINDINGS: No evidence of fracture or dislocation. No bone or soft tissue abnormalities. IMPRESSION: Negative radiographic examination of the pelvis and left hip. Dictated by Marco Antonio Miranda MD @ Feb 01 2019 11:48AM Signed by Dr. Marco Antonio Miranda @ Feb 01 2019 11:49AM
--- NOTE | 2019-02-01 12:09 | US ---
Left lower extremity deep venous ultrasound: Duplex and color Doppler imaging was obtained of the left common femoral, superficial femoral, popliteal, posterior tibial veins and peroneal vein. Normal phasic flow, augmentation and compression is seen. Impression: No evidence of deep venous thrombosis within the left lower extremity. Diagnostic code #1 MTDD
== END 2019-02-01 12:27 | disposition home or self-care (01) ==
LOC: MW.ED 10:10
DX: M79.605 Pain in left leg (principal); E66.9 Obesity, unspecified; I10 Essential (primary) hypertension; K21.9 Gastro-esophageal reflux disease without esophagitis; Z90.49 Acquired absence of other specified parts of digestive tract; Z79.899 Other long term (current) drug therapy; Z68.30 Body mass index [BMI] 30.0-30.9, adult; Z79.84 Long term (current) use of oral hypoglycemic drugs
CPT/HCPCS: 36415; 73502; 73562; 80053; 85025; 85610; 85652; 86140; 93971; 99284; A9270; 99283

== ENCOUNTER 2019-06-27 08:38 | Emergency (ER) | payer OTHER ==
--- NOTE | 2019-06-27 11:00 | EDM.PDOC ---
ED HPI GENERAL MEDICAL PROBLEM - General Chief Complaint: Upper Extremity Injury/Pain Stated Complaint: INJURED RT HAND Time Seen by Provider: 06/27/19 10:00 Source of Information: Reports: Patient History Limitations: Reports: No Limitations - History of Present Illness INITIAL COMMENTS - FREE TEXT/NARRATIVE: HISTORY AND PHYSICAL: History of present illness: Patient is a 43-year-old female who resents to the ED today with concern of left hand injury that occurred just prior to arrival to the ED. Patient states she was out walking to her vehicle and slipped on the ice/snow and landed backwards on her left hand. Patient states she has had pain of the hand as well as the wrist since the fall. Patient states she was not dizzy or lightheaded before falling and that there was an obvious patch of ice that she had slipped on. Patient denies hitting her head or loss of consciousness. Patient denies any other symptoms or concerns. Patient denies fever, chills, chest pain, shortness of breath, or cough. Denies headache, neck stiff ness, change in vision, syncope, or near syncope. Denies nausea, vomiting, abdominal pain, diarrhea, constipation, or dysuria. Has not noted any blood in urine or stool. Patient has been eating and drinking appropriately. Review of systems: As per history of present illness and below otherwise all systems reviewed and negative. Past medical history: As per history of present illness and as reviewed below otherwise noncontributory. Surgical history: As per history of present illness and as reviewed below otherwise noncontributory. Social history: See social history for further information Family history: As per history of present illness and as reviewed below otherwise noncontributory. Physical exam: General: Patient is alert, oriented, and in no acute distress. Patient sitting comfortably on exam table. HEENT: Atraumatic, normocephalic, pupils equal and reactive bilaterally, negative for conjunctival pallor or scleral icterus, mucous membranes moist, TMs normal bilaterally, throat clear, neck supple, nontender, trachea midline. No drooling or trismus noted. No meningeal signs. No hot potato voice noted. Lungs: Clear to auscultation, breath sounds equal bilaterally, chest nontender. Heart: S1S2, regular rate and rhythm without overt murmur Abdomen: Soft, nondistended, nontender. Negative for masses or hepatosplenomegaly. Negative for costovertebral tenderness. Pelvis: Stable nontender. Genitourinary: Deferred. Rectal: Deferred. Skin: Intact, warm, dry. No lesions or rashes noted. Extremities: Negative for cords or calf pain. Neurovascular unremarkable. There are superficial abrasions over the thenar and hypothenar eminence of the left hand without bleeding. Patient does have mild pain with palpation of the distal radius and ulna but no edema or erythema of the complete left upper extremity. Patient does have full range of motion of the complete left upper extremity but does have pain with range of motion of the left wrist and thumb. Negative snuff box tenderness. Radial pulses grossly intact of the left upper extremity with capillary refill less than 2 seconds. Neuro: Awake, alert, oriented. Cranial nerves II through XII unremarkable. Cerebellum unremarkable. Motor and sensory unremarkable throughout. Exam nonfocal. Notes: Discussed importance for follow-up with an orthopedic provider or primary care provider. Voices understanding and is agreeable to plan of care. Denies any further questions or concerns at this time. Diagnostics: hand and wrist XR (labwork offered but patient declines all diagnostics other than hand XR) Therapeutics: Wrist splint Prescription: None Impression: Left wrist injury Left hand injury Superficial abrasion, left hand Plan: 1. Rest, ice, elevate the affected extremity. You can apply ice 15 minutes on, 15 minutes off. 2. Tylenol and/or Ibuprofen as directed for pain management or discomfort. 3. Follow up with the Orthopedic provide or primary care provider as discussed. Return to the ED as needed and as discussed. Definitive disposition and diagnosis as appropriate pending reevaluation and review of above. L hand Pain Score (Numeric/FACES): 8 - Related Data Allergies Allergy/AdvReac Type Severity Reaction Status Date / Time No Known Allergies Allergy Verified 06/27/19 09:01 Home Meds: Home Meds hydroCHLOROthiazide [Hydrochlorothiazide] 12.5 mg PO DAILY #30 cap 10/20/17 [Rx] Montelukast [Singulair] 1 tab PO DAILY 05/29/18 [History] Pantoprazole [ProTONIX] 1 tab PO DAILY 05/29/18 [History] metFORMIN [Glucophage XR] 1 tab PO BID 05/29/18 [History] Cetirizine [ZyrTEC] 10 mg PO BEDTIME 07/26/18 [History] Levocetirizine Dihydrochloride [Xyzal] 5 mg PO DAILY 07/26/18 [History] Sertraline HCl 100 mg PO DAILY 07/26/18 [History] carvediloL [Carvedilol] 12.5 mg PO BEDTIME 07/27/18 [History] Hydrocodone/Acetaminophen [Hydrocodon-Acetaminophen 5-325] 1 each PO Q4H PRN # 30 tablet 08/24/18 [Rx] Ibuprofen [Motrin] 600 mg PO Q6H PRN tablet 08/24/18 [Rx] Montelukast [Singulair] 10 mg PO BEDTIME tablet 08/24/18 [Rx] diphenhydrAMINE [Benadryl] 25 mg PO Q6H PRN cap 08/24/18 [Rx] Acetaminophen/HYDROcodone [Hoopa 325-5 MG] 1 dose PO Q4H #20 tablet 02/01/19 [Rx ] Past Medical History HEENT History: Reports: Allergic Rhinitis, Hard of Hearing, Impaired Vision, Other (See Below) Other HEENT History: wears contacts, left hearing aid Cardiovascular History: Reports: Hypertension Respiratory History: Reports: Asthma Other Respiratory History: Uses Inhaler as needed. 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: Musculoskeletal History: Reports: Neck Pain, Chronic Neurological History: Reports: None Psychiatric History: Reports: Anxiety Endocrine/Metabolic History: Reports: Obesity/BMI 30+ Other Endocrine/Metabolic History: metabolic syndrome Hematologic History: Reports: None Immunologic History: Reports: None Oncologic (Cancer) History: Reports: None Dermatologic History: Reports: Cellulitis - Infectious Disease History Infectious Disease History: Reports: Chicken Pox, Measles, Mumps Other Infectious Disease History: Staph - Past Surgical History Head Surgeries/Procedures: Reports: None GI Surgical History: Reports: Cholecystectomy Female Surgical History: Reports: Section Neurological Surgical History: Reports: None Musculoskeletal Surgical History: Reports: Arthroscopic Knee, Carpal Tunnel Oncologic Surgical History: Reports: None Dermatological Surgical History: Reports: None Social & Family History - Family History Family Medical History: Noncontributory - Tobacco Use Smoking Status *Q: Never Smoker Second Hand Smoke Exposure: No - Caffeine Use Caffeine Use: Reports: None - Recreational Drug Use Recreational Drug Use: No Review of Systems - Review of Systems Review Of Systems: Comprehensive ROS is negative, except as noted in HPI. ED EXAM, GENERAL - Physical Exam Exam: See Below (see dictation) Course - Vital Signs Last Recorded V/S: Last Vital Signs Temp 97.8 F 06/27/19 09:01 Pulse 90 06/27/19 09:01 Resp 16 06/27/19 09:01 BP 151/85 H 06/27/19 09:01 Pulse Ox 97 06/27/19 09:01 - Orders/Labs/Meds Orders: Active Orders 24 hr Category Date Time Status DME for Discharge [COMM] Stat Oth 06/27/19 11:00 Ordered Departure - Departure Time of Disposition: 11:04 Disposition: Home, Self-Care 01 Clinical Impression: Superficial abrasion Left wrist injury Qualifiers: Encounter type: initial encounter Qualified Code(s): S69.92XA - Unspecified injury of left wrist, hand and finger(s), initial encounter Injury of left hand Qualifiers: Encounter type: initial encounter Qualified Code(s): S69.92XA - Unspecified injury of left wrist, hand and finger(s), initial encounter - Discharge Information Referrals: Rosa Robert MD [Primary Care Provider] - Forms: ED Department Discharge Additional Instructions: The following information is given to patients seen in the emergency department who are being discharged to home. This information is to outline your options for follow-up care. We provide all patients seen in our emergency department with a follow-up referral. The need for follow-up, as well as the timing and circumstances, are variable depending upon the specifics of your emergency department visit. If you don't have a primary care physician on staff, we will provide you with a referral. We always advise you to contact your personal physician following an emergency department visit to inform them of the circumstance of the visit and for follow-up with them and/or the need for any referrals to a consulting specialist. The emergency department will also refer you to a specialist when appropriate. This referral assures that you have the opportunity for follow-up care with a specialist. All of these measure are taken in an effort to provide you with optimal care, which includes your follow-up. Under all circumstances we always encourage you to contact your private physician who remains a resource for coordinating your care. When calling for follow-up care, please make the office aware that this follow-up is from your recent emergency room visit. If for any reason you are refused follow-up, please contact the [facility] Emergency Department at and asked to speak to the emergency department charge nurse. [facility] [address] [place] [address] [address] [facility] - [facility] Professional [facility] [address] [place] [address], [address] [place] [address] 1. Rest, ice, elevate the affected extremity. You can apply ice 15 minutes on, 15 minutes off. 2. Tylenol and/or Ibuprofen as directed for pain management or discomfort. 3. Follow up with the Orthopedic provide or primary care provider as discussed. Return to the ED as needed and as discussed. Sepsis Event Note - Evaluation Sepsis Screening Result: No Definite Risk - Focused Exam Vital Signs: Vital Signs Temp Pulse Resp BP Pulse Ox 06/27/19 09:01 97.8 F 90 16 151/85 H 97 Date Exam was Performed: 06/27/19 Time Exam was Performed: 11:04 - My Orders Last 24 Hours: My Active Orders 06/27/19 11:00 DME for Discharge [COMM] Stat - Assessment/Plan Last 24 Hours: My Active Orders 06/27/19 11:00 DME for Discharge [COMM] Stat
--- NOTE | 2019-06-27 11:02 | CR ---
Left wrist: 3 views left wrist were obtained. Comparison: No prior wrist exam is available. Joint spaces are preserved. No fracture, dislocation or other bony abnormality is identified. Impression: 1. No abnormality is appreciated on 3 view left wrist exam. Diagnostic code #1 Study was dictated in [place] Standard Time
--- NOTE | 2019-06-27 11:02 | CR ---
Left hand: 3 views of the left hand were obtained. Comparison: No prior hand exam. No fracture, dislocation or other bony abnormality is seen. Impression: 1. No abnormality is appreciated on left hand exam. Diagnostic code #1 Study was dictated in [place] Standard Time
== END 2019-06-27 11:21 | disposition home or self-care (01) ==
LOC: MW.ED 08:38
DX: S60.512A Abrasion of left hand, initial encounter (principal); S69.92XA Unspecified injury of left wrist, hand and finger(s), initial encounter; I10 Essential (primary) hypertension; J45.909 Unspecified asthma, uncomplicated; K21.9 Gastro-esophageal reflux disease without esophagitis; F41.9 Anxiety disorder, unspecified; E66.9 Obesity, unspecified; Z68.41 Body mass index [BMI] 40.0-44.9, adult; Z79.899 Other long term (current) drug therapy; W00.0XXA Fall on same level due to ice and snow, initial encounter
CPT/HCPCS: 73110-26-LT; 73110-LT; 73130-26-LT; 73130-LT; 99283-25

== ENCOUNTER 2022-03-08 15:00 | Emergency (ER) | payer MEDICAID ==
[2022-03-08] MEDS ORDERED: Sodium Chloride 0.9% 10 ML Syringe FLUSH PRN (15:42)
[2022-03-08] MEDS ORDERED: Sodium Chloride 0.9% 2.5 ML Syringe FLUSH PRN (15:42)
[2022-03-08 16:37] LABS: BLOOD UREA NITROGEN,BUN 14 mg/dL (7.0-18.0); CARBON DIOXIDE,CO2 27.6 mmol/L (21.0-32.0); CHLORIDE,CL 102 mmol/L (98-107); ESTIMATED GFR 92 mL/min (>60); GLUCOSE RANDOM 97 mg/dL (74-106); LIPASE 154 U/L (73-393); POTASSIUM,K 3.9 mmol/L (3.5-5.1); SODIUM,NA 141 mmol/L (136-145)
[2022-03-08] MEDS ORDERED: Iopamidol 755 Mg/ML 100 ML Bottle IVPUSH ONE (18:44)
[2022-03-08] MEDS ORDERED: Ketorolac 30 MG/ML SDV IVPUSH ONE (20:52)
[2022-03-08] MEDS ORDERED: Cyclobenzaprine 10 MG Tab PO ONE (20:52)
[2022-03-08] MEDS ORDERED: Aspirin 81 MG Tab.Chew PO ONE (20:52)
== END 2022-03-08 21:12 | disposition home or self-care (01) ==
LOC: MW.ED 15:00
DX: G45.9 Transient cerebral ischemic attack, unspecified (principal); M79.661 Pain in right lower leg; M79.662 Pain in left lower leg; H53.9 Unspecified visual disturbance; I10 Essential (primary) hypertension; E66.9 Obesity, unspecified; Z68.37 Body mass index [BMI] 37.0-37.9, adult; Z79.899 Other long term (current) drug therapy; Z79.84 Long term (current) use of oral hypoglycemic drugs; Z90.49 Acquired absence of other specified parts of digestive tract
CPT/HCPCS: 36415; 70450; 71045; 71275; 74174; 80053; 81003; 82550; 83605; 83690; 84484; 84703; 85025; 85610; 93005; 96374; 99285; A9270; J1885; J3490; Q9967; 93010; 99284

== ENCOUNTER 2022-05-26 16:30 | Emergency (ER) | payer MEDICAID | END 2022-05-26 18:45 | disposition left against medical advice (07) | LOC: MW.ED 16:30 | DX: Z53.21 Procedure and treatment not carried out due to patient leaving prior to being seen by health care provider (principal) | CPT/HCPCS: 93005 ==

== ENCOUNTER 2022-07-12 09:57 | Emergency (ER) | payer MEDICAID | END 2022-07-12 11:03 | disposition home or self-care (01) | LOC: MW.ED 09:57 | DX: H65.01 Acute serous otitis media, right ear (principal); J02.0 Streptococcal pharyngitis; J01.10 Acute frontal sinusitis, unspecified; I10 Essential (primary) hypertension; J45.909 Unspecified asthma, uncomplicated; K21.9 Gastro-esophageal reflux disease without esophagitis; E66.9 Obesity, unspecified; Z79.84 Long term (current) use of oral hypoglycemic drugs | CPT/HCPCS: 87651-QW; 99283 ==

== ENCOUNTER 2024-03-22 05:09 | Emergency (ER) | payer MEDICAID ==
[2024-03-22] MEDS ORDERED: Sodium Chloride 0.9% 10 ML Syringe FLUSH PRN (05:42)
[2024-03-22] MEDS: Albuterol/Ipratropium 3.0-0.5 MG/3 ML Neb Soln NEB ONE (05:48)
[2024-03-22] MEDS: Dexamethasone 4 MG Tab PO ONE (06:24)
[2024-03-22] MEDS: Dexamethasone 4 MG/ML SDV IVPUSH ONE (06:26)
[2024-03-22 06:38] LABS: BASOPHILS ABSOLUTE AUTO 0.05 K/uL (0.00-0.20); BASOPHILS PERCENT AUTO 0.6 % (0.0-1.0); EOSINOPHILS ABSOLUTE AUTO 0.17 K/uL (0.00-0.45); EOSINOPHILS PERCENT AUTO 2.2 % (0.0-6.0); HEMATOCRIT 36.4 % (37.0-47.0); HEMOGLOBIN 12.2 g/dL (12.0-16.0); IMMATURE GRAN ABSOLUTE AUTO 0.01 K/uL (0.00-0.05); IMMATURE GRAN PERCENT AUTO 0.1 % (0.0-0.4); LYMPHOCYTES ABSOLUTE AUTO 1.38 K/uL (1.00-4.80); LYMPHOCYTES PERCENT AUTO 17.7 % (24.0-44.0); MEAN CORPUSCULAR HEMOGLOBIN 28.7 pg (28.0-32.0); MEAN CORPUSCULAR HGB CONC 33.5 g/dL (32.0-36.0); MEAN CORPUSCULAR VOLUME 85.6 fL (83.0-99.0); MEAN PLATELET VOLUME 8.8 fL (9.4-12.3); MONOCYTES ABSOLUTE AUTO 0.58 K/uL (0.00-0.80); MONOCYTES PERCENT AUTO 7.4 % (0.0-8.0); NEUTROPHILS ABSOLUTE AUTO 5.61 K/uL (1.80-7.70); PLATELET COUNT,PLT 256 K/uL (150-400); RED BLOOD CELL COUNT 4.25 M/uL (4.10-5.30)
[2024-03-22 07:09] LABS: A/G RATIO 1.1 (0.9-1.6); ALANINE AMINOTRANSFERASE,ALT 50 IU/L (14-63); ALBUMIN 3.7 g/dL (3.4-5.0); ALKALINE PHOSPHATASE 55 U/L (46-116); ASPARTATE AMNIOTRANSFERASE,AST 32 IU/L (15-37); BILIRUBIN TOTAL 0.5 mg/dL (0.2-1.0); BLOOD UREA NITROGEN,BUN 18 mg/dL (7.0-18.0); CALCIUM 8.8 mg/dL (8.5-10.1); CARBON DIOXIDE,CO2 28.7 mmol/L (21.0-32.0); CHLORIDE,CL 103 mmol/L (98-107); CREATININE 0.9 mg/dL (0.6-1.0); EST CRCL DRUG DOSING (CG) 60.46 mL/min; GLUCOSE RANDOM 122 mg/dL (74-106); LIPASE 41 U/L (16-77); PRO B-TYPE NATRIUR PEPT,BNPPRO 29 pg/mL (0-125); SODIUM,NA 140 mmol/L (136-145)
[2024-03-22 07:24] LABS: ESTIMATED GFR 79 mL/min (>60)
== END 2024-03-22 08:12 | disposition home or self-care (01) ==
LOC: MW.ED 05:09
DX: R07.9 Chest pain, unspecified (principal); R06.02 Shortness of breath; I10 Essential (primary) hypertension; J45.909 Unspecified asthma, uncomplicated; K21.9 Gastro-esophageal reflux disease without esophagitis; E66.9 Obesity, unspecified; Z68.41 Body mass index [BMI] 40.0-44.9, adult; Z90.49 Acquired absence of other specified parts of digestive tract; Z96.652 Presence of left artificial knee joint; Z79.51 Long term (current) use of inhaled steroids; Z79.2 Long term (current) use of antibiotics; Z79.84 Long term (current) use of oral hypoglycemic drugs; Z79.899 Other long term (current) drug therapy
CPT/HCPCS: 36415; 71045; 80053; 83690; 83735; 83880; 84484; 85025; 85379; 93005; 99285; J8540; J7620-GY

== ENCOUNTER 2024-08-08 14:46 | Emergency (ER) | payer MEDICAID ==
[2024-08-08] MEDS: Alum Hydrox/Mag Hydrox/Simeth 15 ML, Metoclopramide 5 MG, Lidocaine 2% 5 ML PO ONE (16:01)
[2024-08-08 16:17] LABS: BASOPHILS ABSOLUTE AUTO 0.03 K/uL (0.00-0.20); BASOPHILS PERCENT AUTO 0.4 % (0.0-1.0); EOSINOPHILS ABSOLUTE AUTO 0.05 K/uL (0.00-0.45); EOSINOPHILS PERCENT AUTO 0.6 % (0.0-6.0); HEMATOCRIT 40.2 % (37.0-47.0); HEMOGLOBIN 13.5 g/dL (12.0-16.0); IMMATURE GRAN ABSOLUTE AUTO 0.02 K/uL (0.00-0.05); IMMATURE GRAN PERCENT AUTO 0.3 % (0.0-0.4); MEAN CORPUSCULAR HEMOGLOBIN 28.1 pg (28.0-32.0); MEAN CORPUSCULAR HGB CONC 33.6 g/dL (32.0-36.0); MEAN CORPUSCULAR VOLUME 83.8 fL (83.0-99.0); MEAN PLATELET VOLUME 8.7 fL (9.4-12.3); MONOCYTES ABSOLUTE AUTO 0.58 K/uL (0.00-0.80); MONOCYTES PERCENT AUTO 7.4 % (0.0-8.0); NEUTROPHILS ABSOLUTE AUTO 6.09 K/uL (1.80-7.70); NEUTROPHILS PERCENT AUTO 77.3 % (41.0-71.0); PLATELET COUNT,PLT 268 K/uL (150-400); WHITE BLOOD CELL COUNT,WBC 7.87 K/uL (3.9-11.3)
[2024-08-08] MEDS: Sodium Chloride 0.9% 1,000 ML IV ONE (16:25)
[2024-08-08] MEDS: Ketorolac 30 MG/ML SDV IVPUSH ONE (16:27)
[2024-08-08] MEDS: Ondansetron 4 MG/2 ML SDV IVPUSH ONE (16:27)
[2024-08-08 16:53] LABS: ALBUMIN 3.7 g/dL (3.4-5.0); BILIRUBIN TOTAL 0.7 mg/dL (0.2-1.0); CALCIUM 8.4 mg/dL (8.5-10.1); CARBON DIOXIDE,CO2 23.9 mmol/L (21.0-32.0); EST CRCL DRUG DOSING (CG) 51.92 mL/min; POTASSIUM,K 3.7 mmol/L (3.5-5.1); PROTEIN TOTAL,TP 7.3 g/dL (6.4-8.2)
[2024-08-08 17:42] LABS: APPEARANCE,URINE SLT CLOUDY; BILIRUBIN,URINE NEGATIVE (NEGATIVE); COLOR,URINE YELLOW; GLUCOSE,URINE NEGATIVE (NEGATIVE); KETONES,URINE TRACE mg/dL (NEGATIVE); LEUKOCYTE ESTERASE,URINE NEGATIVE (NEGATIVE); NITRITE,URINE NEGATIVE (NEGATIVE); OCCULT BLOOD,URINE NEGATIVE (NEGATIVE); PH,URINE 5.5 (5.0-8.0); PROTEIN,URINE TRACE mg/dL (NEGATIVE); UROBILINOGEN,URINE 0.2 EU/dL (<2.0)
[2024-08-08 17:51] LABS: BACTERIA,URINE FEW (NEGATIVE); EPITHELIAL CELLS,URINE FEW (NONE-FEW); RBC,URINE 0-2 (0-2/HPF); WBC,URINE 0-2 (0-5/HPF)
== END 2024-08-08 18:02 | disposition home or self-care (01) ==
LOC: MW.ED 14:46
DX: A08.4 Viral intestinal infection, unspecified (principal); I10 Essential (primary) hypertension; E78.00 Pure hypercholesterolemia, unspecified; E66.9 Obesity, unspecified; K21.9 Gastro-esophageal reflux disease without esophagitis; J45.909 Unspecified asthma, uncomplicated; Z68.42 Body mass index [BMI] 45.0-49.9, adult; Z75.8 Other problems related to medical facilities and other health care; Z79.84 Long term (current) use of oral hypoglycemic drugs; Z79.899 Other long term (current) drug therapy
CPT/HCPCS: 36415; 80053; 81001; 85025; 87428; 96361; 96374; 96375; 99284; A9270; J1885; J2405; J7030; 99283